=== PATIENT | male | born 1950 | race Caucasian/White ===

== ENCOUNTER 2019-07-04 14:05 | Inpatient (IN) | payer MEDICARE ==
[~2019-07-04] VITALS: Ht 175.3 cm; Wt 85.7 kg
[2019-07-04 14:15] VITALS: BP 166/75
[2019-07-04] MEDS ORDERED: BISACODYL 10 MG SUPP PR PRN (15:00)
[2019-07-04] MEDS ORDERED: GLUCAGON FOR INJ 1 MG VIAL (J1610) SC PRN (15:00)
[2019-07-04] MEDS ORDERED: DEXTROSE 50% 50 ML SYRINGE IV PRN (15:00)
[2019-07-04] MEDS ORDERED: GLUCOSE 4 GM CHEW TABLET PO PRN (15:00)
[2019-07-04] MEDS ORDERED: MOM 30ML SUSPENSION UDC PO PRN (15:00)
[2019-07-04] MEDS ORDERED: ATOR1TAB21 PO (15:13)
[2019-07-04] MEDS ORDERED: METF-877 PO (15:13)
[2019-07-04] MEDS ORDERED: SENN1TAB36 PO (15:13)
[2019-07-04] MEDS ORDERED: WARF-23 PO (15:13)
[2019-07-04] MEDS ORDERED: GABA-1171 PO (15:13)
[2019-07-04] MEDS ORDERED: CARV6.25 PO (15:13)
[2019-07-04] MEDS ORDERED: ENAL10TA2 PO (15:13)
[2019-07-04] MEDS ORDERED: MUCI600T31 PO (15:13)
[2019-07-04] MEDS ORDERED: FURO80TA2 PO (15:18)
[2019-07-04] MEDS ORDERED: ASPI81TA85 PO (15:18)
[2019-07-04] MEDS ORDERED: SPIR-10 PO (15:18)
[2019-07-04] MEDS ORDERED: ACET-897 PO (15:18)
[2019-07-04] MEDS ORDERED: MULTCAP PO (15:19)
[2019-07-04] MEDS ORDERED: WARFARIN SOD 5 MG TAB PO ONE (17:00)
[2019-07-04] MEDS: metFORMIN (GLUCOPHAGE) 1000 MG TABLET PO SCH (18:30)
[2019-07-04] MEDS: ACETAMINOPHEN 500 MG TAB PO SCH ×2 (18:31→21:35)
[2019-07-04] MEDS: HumaLOG INSULIN (NovoLOG) PER UNIT SC SCH ×2 (18:31→20:16)
[2019-07-04 20:00] VITALS: BP 170/78
[2019-07-04] MEDS: GABAPENTIN 100 MG CAP PO SCH (21:35)
[2019-07-04] MEDS: DOCUSATE SODIUM 100 MG CAP PO SCH (21:35)
[2019-07-04] MEDS: SENNA 8.6 MG TAB (SENOKOT) PO SCH (21:35)
[2019-07-04] MEDS: ATORVASTATIN 20 MG TAB PO SCH (21:35)
[2019-07-04] MEDS: BOUDREAUX'S BUTT PASTE TOP SCH (21:36)
[2019-07-04] MEDS: CARVedilol 6.25 MG TAB PO SCH (21:38)
[2019-07-04 21:40] VITALS: BP 130/80
[2019-07-05 05:21] VITALS: BP 140/70
[2019-07-05 05:31] VITALS: BP 140/70
[2019-07-05 07:02] LABS: BASO # 0.1 10^3/uL (0.0-0.2); BASO % 0.8 % (0.0-1.0); EOS # 0.1 10^3/uL (0.0-0.50); EOS % 0.9 % (0.0-3.0); HEMATOCRIT 26.4 % (42.0-52.0); LYMPH % 10.9 % (24.0-44.0); MEAN CORPUSCULAR HEMOGLOBIN 26.7 pg (27.0-33.0); MEAN CORPUSCULAR HGB CONC 30.3 g/dl (32.0-36.5); MONO # 0.6 10^3/uL (0.0-0.8); MONO % 6.4 % (0.0-5.0); NEUTROPHILS % 78.7 % (36.0-66.0); PLATELET COUNT, AUTOMATED 447 10^3/uL (150-450); WHITE BLOOD COUNT 8.9 10^3/uL (4.0-10.0)
[2019-07-05 07:18] LABS: INR 1.68; PROTHROMBIN TIME 19.5 SECONDS (11.8-14.0)
[2019-07-05 07:33] LABS: ALT/SGPT 67 U/L (12-78); BILIRUBIN,TOTAL 0.3 MG/DL (0.2-1.0); BLOOD UREA NITROGEN 19 MG/DL (7-18); CALCIUM LEVEL 8.3 MG/DL (8.8-10.2); CARBON DIOXIDE LEVEL 29 MEQ/L (21-32); CHLORIDE LEVEL 101 MEQ/L (98-107); CREATININE FOR GFR 1.16 MG/DL (0.70-1.30); GLOMERULAR FILTRATION RATE > 60.0 (>42); GLUCOSE, FASTING 123 MG/DL (70-100); POTASSIUM SERUM 3.8 MEQ/L (3.5-5.1); SODIUM LEVEL 137 MEQ/L (136-145); TOTAL PROTEIN 7.5 GM/DL (6.4-8.2)
[2019-07-05] MEDS: CARVedilol 6.25 MG TAB PO SCH ×2 (09:00→20:12)
[2019-07-05] MEDS: DOCUSATE SODIUM 100 MG CAP PO SCH ×2 (09:13→20:10)
[2019-07-05] MEDS: SPIRONOLACTONE 25 MG TAB PO SCH (09:14)
[2019-07-05] MEDS: ONDANSETRON 4 MG ORAL DISINTEGRATING TAB (Q0162 PER 1MG) PO PRN (09:14)
[2019-07-05] MEDS: ASPIRIN 81 MG CHEW TABLET PEG SCH (09:14)
[2019-07-05] MEDS: ACETAMINOPHEN 500 MG TAB PO SCH ×3 (09:14→20:12)
[2019-07-05] MEDS: GABAPENTIN 100 MG CAP PO SCH ×2 (09:14→20:10)
[2019-07-05] MEDS: VITAMIN D 1,000 INTERNATIONAL UNITS TABLET PO SCH (09:14)
[2019-07-05] MEDS: MULTIVITAMINS/MINERALS THERAP 1 TAB PO SCH (09:15)
[2019-07-05] MEDS: FUROSEMIDE 80 MG TAB PO SCH (09:15)
[2019-07-05] MEDS: metFORMIN (GLUCOPHAGE) 1000 MG TABLET PO SCH ×2 (09:20→18:04)
[2019-07-05] MEDS: HumaLOG INSULIN (NovoLOG) PER UNIT SC SCH ×4 (09:21→20:13)
[2019-07-05] MEDS: BOUDREAUX'S BUTT PASTE TOP SCH ×2 (09:22→20:14)
--- NOTE | 2019-07-05 09:54 | HPEPDOC ---
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 Stewart with persistent poor wound healing and leukocytosis admitted to [facility] on June 27 2019 for gangrene of his right toe. he was started on IV vancomycin and zosyn, evaluated by vascular surgery who deemed his foot to be not salvageable. He underwent a right bka on June 30 2019, with post-op complication of having a super therapeutic INR despite having held his Coumadin. His hgb/hct dropped and he was given one unit of red blood cells. He was continued on aspirin and restarted it on coumadin prior to his discharge. He was evaluated by therapy found to be well below his prior level of function with regard to mobility in ADL management and medically appropriate for discharge to ARU on 07-04-2018. REVIEW OF SYSTEMS: The following is a completed review of systems and has been r eviewed. Review of systems otherwise unremarkable. PAIN: Patient self reports no pain EYES: No recent vision changes EARS, NOSE, & THROAT: No throat pain, or dysphagia, or rhinorrhea CARDIOVASCULAR: Denies chest pain or palpitations PULMONARY: Denies shortness of breath GASTROINTESTINAL: Denies constipation/diarrhea GENITOURINARY: no dysuria MUSCULOSKELETAL: right bka NEUROLOGICAL: no vocal Tremor or seizure activity HEMATOLOGICAL: anemia SKIN: bka incision PSYCHIATRIC: Unremarkable All other review of systems found to be negative. PAST MEDICAL HISTORY: as per HPI PAST SURGICAL HISTORY: as per HPI ALLERGIES: Please see below. MEDICATIONS: Please see below. 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 GENERAL: Pleasant and cooperative. No acute distress. HEENT: PERRL. Extraocular movements intact. Clear conjunctiva CARDIOVASCULAR: Regular rate and rhythm. No murmurs, rubs, or gallops LUNGS: Clear to auscultation bilaterally. No wheezes. No rhonchi ABDOMEN: Soft, nontender, nondistended. Positive bowel sounds. Normal active bowel sounds NEUROLOGICAL: Alert and oriented times three. Cranial nerves II through XII grossly intact. Sensation grossly intact EXTREMITIES: 5/\5 strength bilateral upper extremities. 5\5 strength right hip flexion knee flexion knee extension. 5/5 strength in left lower extremity. SKIN: right BKLA incision with scan sanguineous drainage, No induration, minimal swelling LABORATORY DATA: Please see below. IMAGING:Imaging documentation personally reviewed by record FUNCTIONAL STATUS: Premorbid: Independent with all activities of daily life as well as mobility]. On Admission: Requiring assistance for ambulation x 2, minimal assistance or lower-body dressing, requiring assistance for bed mobility and functional transfers GOALS: modified independent household distances with a rolling walker, modified independent functional transfers, toileting dressing bathing, limb care, medical optimization, caregiver training, DME assessment ASSESSMENT:69-year-old M with past medical history of CAD s/p CABG, CKD 3, DM2 who presents status post right BKA PLAN: 1. Rehab: PT- strengthen left LE, maintain ROM right LE, improve endurance for household ambulation, limb desensitization OT- strengthen bilat UE and trunk, teach adaptive equipment use prn, maintain ROM of bilat UE and educate on shoulder stabilization exercises 2. Cardiac: pmh CAD sp CABG with PM/defibrillator, CHF- c/u lasix, aldactone, Co-reg, will fluid restrict to 1800c- medicine consulted to assist in management -Afib- c/u coumadin goal 2-3 3. neuro: pmh CVA with no obvious deficits, c/u statin therapy and ASA for secondary prevention 4. Resp: encourage incentive spirometry 5. Vascular: s/p right BKA -Follow-up appointment with Dr Russo 07-20-19 8 am 6. Renal: pmh CKD, monitor [employer] 7. Endo: pmh DM, c/u metformin and ISS coverage 8. Skin: change dressing BID 9. GI: optimize bowel care 10. : monitor PVRs 11. DVT ppx: on coumadin 12. Pain: c/u Tylenol and oxycodone prn, gabapentin 13. Dispo: tbd POST ADMISSION PHYSICIAN EVALUATION: Medical and functional status: Description of medical status, medical assessment: As above. Rehabilitation diagnosis and current and prior cold morbid medical conditions as above. Risk of complications and plans to mitigate them as above. Description of functional status current status is as above. Prior status as above. Status compared to preadmission: There are no clinically significant differences between the patient's current status and the information described on the preadmission screening document. Treatment plan anticipated: Treatment plan is as described above. Required disciplines including physical therapy, occupational therapy, others as noted above. Intensity of services:3 hours a day, 6 days a week. Special considerations: There are no specific special or safety considerations that would likely preclude immediate implementation of an intensive rehabilitation program or subsequently influence the plan of care. ATTESTATION: Considering all the information above, it is my best judgment that this patient requires intensive rehabilitation therapy as described above and an inpatient hospital environment due to the complexity of nursing, medical, and rehabilitation needs required by the patient. Furthermore, this patient can reasonably be expected to participate in an benefit from an inpatient rehabilitation stay with an interdisciplinary team approach to the delivery of rehabilitation care under the direction and supervision of rehabilitation physician. PROGNOSIS: Excellent ESTIMATED LENGTH OF STAY: 12-14 days. PROJECTED DISCHARGE DESTINATION: Home with family support and any durable medical equipment required to increase functional safety and mobility. TIME SPENT COUNSELING AND COORDINATING INITIAL CARE: Greater than 70 minutes. Vital Signs Vital Sign - Last 24 Hours 07/04/19 07/04/19 07/04/19 07/04/19 14:15 20:00 21:38 21:40 Temp 98.1 96.9 Pulse 69 67 70 70 Resp 18 16 B/P (MAP) 166/75 (105) 170/78 (108) 130/80 130/80 (97) Pulse Ox 98 94 07/05/19 07/05/19 07/05/19 05:21 05:31 09:00 Temp 97.5 Pulse 60 60 Resp 18 B/P (MAP) 140/70 (93) 140/70 (93) 135/61 Pulse Ox 95 Laboratory Data CBC/BMP Laboratory Tests 07/05/19 06:32 Red Blood Count 3.00 L, Mean Corpuscular Volume 88.0, Mean Corpuscular Hemoglobin 26.7 L, Mean Corpuscular Hemoglobin Concent 30.3 L, Red Cell Distribution Width 17.9 H, Neutrophils (%) (Auto) 78.7 H, Lymphocytes (%) (Auto) 10.9 L, Monocytes (%) (Auto) 6.4 H, Eosinophils (%) (Auto) 0.9, Basophils (%) (Auto) 0.8, Neutrophils # (Auto) 7.0, Lymphocytes # (Auto) 1.0 L, Monocytes # (Auto) 0.6, Eosinophils # (Auto) 0.1, Basophils # (Auto) 0.1, Calcium Level 8.3 L, Aspartate Amino Transf (AST/SGOT) 31, Alanine Aminotransferase (ALT/SGPT) 67, Alkaline Phosphatase 167 H, Total Bilirubin 0.3, Total Protein 7.5, Albumin 2.0 L Labs 24H Laboratory Tests 2 07/04/19 17:20: Bedside Glucose (Misc Panel) 137H 07/04/19 20:09: Bedside Glucose (Misc Panel) 168H 07/05/19 06:03: Bedside Glucose (Misc Panel) 135H 07/05/19 06:32: Immature Granulocyte % (Auto) 2.3, White Blood Count 8.9, Red Blood Count 3.00L, Hemoglobin 8.0L, Hematocrit 26.4L, Mean Corpuscular Volume 88.0, Mean Corpuscular Hemoglobin 26.7L, Mean Corpuscular Hemoglobin Concent 30.3L, Red Cell Distribution Width 17.9H, Platelet Count 447, Neutrophils (%) (Auto) 78.7H, Lymphocytes (%) (Auto) 10.9L, Monocytes (%) (Auto) 6.4H, Eosinophils (%) (Auto) 0.9, Basophils (%) (Auto) 0.8, Neutrophils # (Auto) 7.0, Lymphocytes # (Auto) 1.0L, Monocytes # (Auto) 0.6, Eosinophils # (Auto) 0.1, Basophils # (Auto) 0.1, Nucleated Red Blood Cells % (auto) 0.0, Prothrombin Time 19.5H, Prothromb Time I nternational Ratio 1.68, Anion Gap 7L, Glomerular Filtration Rate > 60.0, Blood Urea Nitrogen 19H, Creatinine 1.16, Sodium Level 137, Potassium Level 3.8, Chloride Level 101, Carbon Dioxide Level 29, Calcium Level 8.3L, Aspartate Amino Transf (AST/SGOT) 31, Alanine Aminotransferase (ALT/SGPT) 67, Alkaline Phosphatase 167H, Total Bilirubin 0.3, Total Protein 7.5, Albumin 2.0L, Albumin/Globulin Ratio 0.36L FSBS Laboratory Tests Test 07/04/19 17:20 07/04/19 20:09 07/05/19 06:03 Range/Units Bedside Glucose (Misc Panel) 137 168 135 83-110 MG/DL Home Medications Scheduled Aspirin (Aspir 81) 81 Mg Tablet.dr, 81 MG PO DAILY, (Reported) Atorvastatin Calcium (Atorvastatin Calcium) 20 Mg Tablet, 20 MG PO QHS, (Reported) NEW FROM [facility] Carvedilol (Carvedilol) 6.25 Mg Tablet, 6.25 MG PO BID, (Reported) NEW FROM [facility] Enalapril Maleate (Enalapril Maleate) 10 Mg Tablet, 10 MG PO DAILY, (Reported) HOME MED Furosemide (Furosemide) 80 Mg Tablet, 80 MG PO DAILY, (Reported) Gabapentin (Gabapentin) 100 Mg Capsule, 100 MG PO BID, (Reported) Guaifenesin (Mucinex) 600 Mg Tab.er.12h, 600 MG PO BID, (Reported) Metformin HCl (Metformin HCl) 1,000 Mg Tablet, 1,000 MG PO BID, (Reported) Multivitamin (Multivitamins) 1 Each Capsule, 1 CAP PO DAILY, (Reported) Spironolactone (Spironolactone) 25 Mg Tablet, 25 MG PO DAILY, (Reported) Warfarin Sodium (Warfarin Sodium) 5 Mg Tablet, 5 MG PO QPM, (Reported) Scheduled PRN Acetaminophen (Tylenol Extra Strength) 500 Mg Tablet, 1,000 MG PO TID PRN for PAIN, (Reported) Sennosides/Docusate Sodium (Docusate Sodium-Senna Tablet) 1 Each Tablet, 1 TAB PO BID PRN for CONSTIPATION, (Reported) Allergies Coded Allergies: No Known Drug Allergies (Verified Allergy, Unknown, 07/04/19) A-FIB/CHADSVASC A-FIB History Current/History of A-Fib/PAF?: Yes Current PO Anticoag Therapy: Yes SUJATA NERI MD Jul 05, 2019 09:54
--- NOTE | 2019-07-05 10:28 | IPNPDOC ---
PM&R Progress Note DATE OF SERVICE: Jul 05, 2019 [facility] Progress Note SUbjective: Patient reporting minimal pain in his limb and thinks he had a hard work-out today in therapy. REVIEW OF SYSTEMS: The following is a completed review of systems and has been reviewed. Review of systems otherwise unremarkable. PAIN: Patient self reports no pain EYES: No recent vision changes EARS, NOSE, & THROAT: No throat pain, or dysphagia, or rhinorrhea CARDIOVASCULAR: Denies chest pain or palpitations PULMONARY: Denies shortness of breath GASTROINTESTINAL: Denies constipation/diarrhea GENITOURINARY: no dysuria MUSCULOSKELETAL: right bka NEUROLOGICAL: no vocal Tremor or seizure activity HEMATOLOGICAL: anemia SKIN: bka incision PSYCHIATRIC: Unremarkable All other review of systems found to be negative. PHYSICAL EXAMINATION: VITAL SIGNS: Please see below. GENERAL: Pleasant and cooperative. No acute distress. HEENT: PERRL. Extraocular movements intact. Clear conjunctiva CARDIOVASCULAR: Regular rate and rhythm. No murmurs, rubs, or gallops LUNGS: Clear to auscultation bilaterally. No wheezes. No rhonchi ABDOMEN: Soft, nontender, nondistended. Positive bowel sounds. Normal active bowel sounds NEUROLOGICAL: Alert and oriented times three. Cranial nerves II through XII grossly intact. Sensation grossly intact EXTREMITIES: 5/\5 strength bilateral upper extremities. 5\5 strength right hip flexion knee flexion knee extension. 5/5 strength in left lower extremity. SKIN: right BKLA incision with scan sanguineous drainage, No induration, minimal swelling ASSESSMENT:69-year-old M with past medical history of CAD s/p CABG, CKD 3, DM2 who presents status post right BKA PLAN: 1. Rehab: PT- strengthen left LE, maintain ROM right LE, improve endurance for household ambulation, limb desensitization OT- strengthen bilat UE and trunk, teach adaptive equipment use prn, maintain ROM of bilat UE and educate on shoulder stabilization exercises 2. Cardiac: pmh CAD sp CABG with PM/defibrillator, CHF- c/u lasix, aldactone, Co-reg, will fluid restrict to 1800c- medicine consulted to assist in management -Afib- c/u coumadin goal 2-3 3. neuro: pmh CVA with no obvious deficits, c/u statin therapy and ASA for secondary prevention 4. Resp: encourage incentive spirometry 5. Vascular: s/p right BKA -Follow-up appointment with Dr Stewart 07-20-19 8 am 6. Renal: pmh CKD, monitor [employer] 7. Endo: pmh DM, c/u metformin and ISS coverage 8. Skin: change dressing BID 9. GI: optimize bowel care 10. : monitor PVRs 11. DVT ppx: on coumadin 12. Pain: c/u Tylenol and oxycodone prn, gabapentin 13. Dispo: tbd Allergies Coded Allergies: No Known Drug Allergies (Verified Allergy, Unknown, 07/04/19) Vital Signs Vital Signs Date Time Temp Pulse Resp B/P (MAP) Pulse Ox O2 Delivery O2 Flow Rate FiO2 07/05/19 09:00 60 135/61 07/05/19 05:31 97.5 18 95 Laboratory Data CBC/BMP Laboratory Tests 07/05/19 06:32 Red Blood Count 3.00 L, Mean Corpuscular Volume 88.0, Mean Corpuscular Hemoglobin 26.7 L, Mean Corpuscular Hemoglobin Concent 30.3 L, Red Cell Distribution Width 17.9 H, Neutrophils (%) (Auto) 78.7 H, Lymphocytes (%) (Auto) 10.9 L, Monocytes (%) (Auto) 6.4 H, Eosinophils (%) (Auto) 0.9, Basophils (%) (Auto) 0.8, Neutrophils # (Auto) 7.0, Lymphocytes # (Auto) 1.0 L, Monocytes # (Auto) 0.6, Eosinophils # (Auto) 0.1, Basophils # (Auto) 0.1, Calcium Level 8.3 L, Aspartate Amino Transf (AST/SGOT) 31, Alanine Aminotransferase (ALT/SGPT) 67, Alkaline Phosphatase 167 H, Total Bilirubin 0.3, Total Protein 7.5, Albumin 2.0 L Labs 24H Laboratory Tests 2 07/04/19 17:20: Bedside Glucose (Misc Panel) 137H 07/04/19 20:09: Bedside Glucose (Misc Panel) 168H 07/05/19 06:03: Bedside Glucose (Misc Panel) 135H 07/05/19 06:32: Immature Granulocyte % (Auto) 2.3, White Blood Count 8.9, Red Blood Count 3.00L, Hemoglobin 8.0L, Hematocrit 26.4L, Mean Corpuscular Volume 88.0, Mean Corpuscular Hemoglobin 26.7L, Mean Corpuscular Hemoglobin Concent 30.3L, Red Cell Distribution Width 17.9H, Platelet Count 447, Neutrophils (%) (Auto) 78.7H, Lymphocytes (%) (Auto) 10.9L, Monocytes (%) (Auto) 6.4H, Eosinophils (%) (Auto) 0.9, Basophils (%) (Auto) 0.8, Neutrophils # (Auto) 7.0, Lymphocytes # (Auto) 1.0L, Monocytes # (Auto) 0.6, Eosinophils # (Auto) 0.1, Basophils # (Auto) 0.1, Nucleated Red Blood Cells % (auto) 0.0, Prothrombin Time 19.5H, Prothromb Time International Ratio 1.68, Anion Gap 7L, Glomerular Filtration Rate > 60.0, Blood Urea Nitrogen 19H, Creatinine 1.16, Sodium Level 137, Potassium Level 3.8, Chloride Level 101, Carbon Dioxide Level 29, Calcium Level 8.3L, Aspartate Amino Transf (AST/SGOT) 31, Alanine Aminotransferase (ALT/SGPT) 67, Alkaline Phosphatase 167H, Total Bilirubin 0.3, Total Protein 7.5, Albumin 2.0L, Albumin/Globulin Ratio 0.36L Current Medications Current Medications Current Medications Medications (Trade) Dose Ordered Sig/Lico Route PRN Reason Start Time Stop Time Status Last Admin Dose Admin Acetaminophen (Tylenol Tab) 1,000 mg TID PO 07/04/19 16:00 07/05/19 09:14 Aspirin (Aspirin Chewable) 81 mg DAILY PEG 07/05/19 09:00 07/05/19 09:14 Atorvastatin Calcium (Lipitor) 20 mg QHS PO 07/04/19 21:00 07/04/19 21:35 Bisacodyl (Dulcolax Suppository) 10 mg DAILYPRN PRN GA CONSTIPATION 07/04/19 15:00 Carvedilol (COReg) 6.25 mg BID PO 07/04/19 21:00 07/04/19 21:38 Dextrose (Dextrose 50%) 25 ml ASDIRECTED PRN IV SEE LABEL COMMENTS 07/04/19 15:00 Docusate Sodium (Colace) 100 mg BID PO 07/04/19 21:00 07/05/19 09:13 Furosemide (Lasix) 80 mg DAILY PO 07/05/19 09:00 07/05/19 09:15 Gabapentin (Neurontin) 100 mg BID PO 07/04/19 21:00 07/05/19 09:14 Glucagon (Glucagon) 1 mg ASDIRECTED PRN SC SEE LABEL COMMENTS 07/04/19 15:00 Glucose (Glucose) 16 GM ASDIRECTED PRN PO SEE LABEL COMMENTS 07/04/19 15:00 Home Med (Med Rec Complete!) ASDIRECTED XX 07/04/19 15:30 07/04/19 15:32 DC Insulin Human Lispro (HumaLOG INSULIN) SEE PROTOCOL TABLE AC SC 07/04/19 17:30 07/05/19 09:21 Insulin Human Lispro (HumaLOG INSULIN) SEE PROTOCOL TABLE QHS SC 07/04/19 21:00 Magnesium Hydroxide (Milk Of Magnesia) 30 ml DAILYPRN PRN PO CONSTIPATION 07/04/19 15:00 Metformin HCl (Glucophage) 1,000 mg BID@08,18 PO 07/04/19 18:00 07/05/19 09:20 Multivitamins (Theragram-M) 1 tab DAILY PO 07/05/19 09:00 07/05/19 09:15 Ondansetron HCl (Zofran Odt) 4 mg Q8HP PRN PO NAUSEA OR VOMITING 07/05/19 08:45 07/05/19 09:14 Oxycodone HCl (Roxicodone, Oxyir) 5 mg Q4HP PRN PO PAIN 07/04/19 15:00 Senna (Senokot) 1 tab QHS PO 07/04/19 21:00 07/04/19 21:35 Spironolactone (Aldactone) 25 mg QAM PO 07/05/19 09:00 07/05/19 09:14 Vitamin D (Vitamin D) 1,000 units DAILY PO 07/05/19 09:00 07/05/19 09:14 Zinc Oxide (Boudreauxs Butt Paste) sacrum BID TOP 07/04/19 21:00 07/05/19 09:22 SUJATA NERI MD Jul 05, 2019 10:28
--- NOTE | 2019-07-05 11:16 | CR.PDOC ---
General Date of Consultation: Jul 05, 2019 Referring Provider: SUJATA NERI MD Attending Physician: ISABELL ROGERS MD Consultation REASON FOR CONSULTATION/CHIEF COMPLAINT: Medical management HISTORY OF PRESENT ILLNESS: Patient is a 69-year-old male, past medical history significant for peripheral vascular disease, who sustained injury to his right total from an ingrown toenail. Patient subsequently developed gangrene requiring evaluation by vascular surgery with the decision to proceed with right femoral tibial bypass on May 19. After surgery and return home, he did not heal and actually developed infection and became septic. He was admitted to ICU and after reevaluation, the decision was made to proceed with [id number] amputation of his right foot due to nonhealing ulcer and infection. Post surgery, patient was discharged to inpatient rehabilitation unit for mobilization and strengthening. On assessment today he denies chest pain, shortness of breath, weakness, nausea, abdominal pain, constipation, diarrhea. ALLERGIES: Please see below. HOME MEDICATIONS: Please see below. PAST MEDICAL HISTORY: 1. CAD S/P CABG 2. Type 2 diabetes mellitus 3. Hypertension 4. Hyperlipidemia 5. Chronic kidney disease 6. Peripheral arterial disease 7. Ischemic cardiomyopathy 8. CVA. 9. Chronic systolic, diastolic heart failure 10. Mitral valve regurgitation PAST SURGICAL HISTORY: 1. Right BKA. 2. ICD permanent pacemaker implantation. 3. CABG 4. Coronary angioplasty. 5. Peripheral angioplasty. 6. Hernia repair. 7. Cholecystectomy. 8. Right femoral tibial bypass FAMILY HISTORY: Father: Diabetes mellitus, hypertension Mother: Diabetes mellitus, hypertension SOCIAL HISTORY: Tobacco use: Denies ETOH: Denies Illicit drug use: Denies IV drug use: Denies REVIEW OF SYSTEMS:A pertinent 10 point review of systems is completed, negative except as stated in the history of presenting illness PHYSICAL EXAMINATION: GENERAL: NAD SKIN : Warm, dry, right BKA wound, ischemic changes to left lower extremity HEENT: Atraumatic, normocephalic, PERRL, moist mucous membrane CARDIOVASCULAR: Regular rate and rhythm, S1S2, no JVD, left LE edema, distal pulses not palpable RESP: CTAB, no accessory muscle use noted ABDOMEN: BS+ non distended non tender MS:right BKA NEURO: Alert and oriented x 3, CN2-12 grossly intact PSYCH: no anxiety or agitation, appropriate mood and affect. LABORATORY DATA: Please see below. ASSESSMENT/PLAN: 1. Hypertension -Stable, controlled, and she monitoring per unit protocol 2. CAD without angina -CAD risk factor modifications 3. Chronic atrial fibrillation -With possibly complete heart block in the past, now pacemaker dependent. Patient -Rate is controlled -Continue warfarin for target INR 2-3 4. Type 2 diabetes mellitus -Fingerstick monitoring prior to meals and at bedtime -Metformin 1000 mg twice a day 5. Combined heart failure -Chronic, currently euvolemic -Fluid restriction, 1800 mL a day -Strict input and output monitoring -Continue Lasix with electrolytes monitoring 6. DVT prophylaxis -Fully anticoagulated with warfarin Vital Signs/I&O Vital Signs Date Time Temp Pulse Resp B/P (MAP) Pulse Ox O2 Delivery O2 Flow Rate FiO2 07/05/19 09:00 60 135/61 07/05/19 05:31 97.5 18 95 I&O- Last 24 Hours up to 6 AM 07/05/19 06:00 Intake Total 960 ml Output Total 1850 ml Balance -890 ml Laboratory Data Labs 24H Laboratory Tests 2 07/04/19 17:20: Bedside Glucose (Misc Panel) 137H 07/04/19 20:09: Bedside Glucose (Misc Panel) 168H 07/05/19 06:03: Bedside Glucose (Misc Panel) 135H 07/05/19 06:32: Immature Granulocyte % (Auto) 2.3, White Blood Count 8.9, Red Blood Count 3.00L, Hemoglobin 8.0L, Hematocrit 26.4L, Mean Corpuscular Volume 88.0, Mean Corpuscular Hemoglobin 26.7L, Mean Corpuscular Hemoglobin Concent 30.3L, Red C ell Distribution Width 17.9H, Platelet Count 447, Neutrophils (%) (Auto) 78.7H, Lymphocytes (%) (Auto) 10.9L, Monocytes (%) (Auto) 6.4H, Eosinophils (%) (Auto) 0.9, Basophils (%) (Auto) 0.8, Neutrophils # (Auto) 7.0, Lymphocytes # (Auto) 1.0L, Monocytes # (Auto) 0.6, Eosinophils # (Auto) 0.1, Basophils # (Auto) 0.1, Nucleated Red Blood Cells % (auto) 0.0, Prothrombin Time 19.5H, Prothromb Time International Ratio 1.68, Anion Gap 7L, Glomerular Filtration Rate > 60.0, Blood Urea Nitrogen 19H, Creatinine 1.16, Sodium Level 137, Potassium Level 3.8, Chloride Level 101, Carbon Dioxide Level 29, Calcium Level 8.3L, Aspartate Amino Transf (AST/SGOT) 31, Alanine Aminotransferase (ALT/SGPT) 67, Alkaline Phosphatase 167H, Total Bilirubin 0.3, Total Protein 7.5, Albumin 2.0L, Albumin/Globulin Ratio 0.36L CBC/BMP Laboratory Tests 07/05/19 06:32 Red Blood Count 3.00 L, Mean Corpuscular Volume 88.0, Mean Corpuscular Hemoglobin 26.7 L, Mean Corpuscular Hemoglobin Concent 30.3 L, Red Cell Distribution Width 17.9 H, Neutrophils (%) (Auto) 78.7 H, Lymphocytes (%) (Auto) 10.9 L, Monocytes (%) (Auto) 6.4 H, Eosinophils (%) (Auto) 0.9, Basophils (%) (Auto) 0.8, Neutrophils # (Auto) 7.0, Lymphocytes # (Auto) 1.0 L, Monocytes # (Auto) 0.6, Eosinophils # (Auto) 0.1, Basophils # (Auto) 0.1, Calcium Level 8.3 L, Aspartate Amino Transf (AST/SGOT) 31, Alanine Aminotransferase (ALT/SGPT) 67, Alkaline Phosphatase 167 H, Total Bilirubin 0.3, Total Protein 7.5, Albumin 2.0 L Allergies Coded Allergies: No Known Drug Allergies (Verified Allergy, Unknown, 07/04/19) Home Medications Scheduled Aspirin (Aspir 81) 81 Mg Tablet.dr, 81 MG PO DAILY, (Reported) Atorvastatin Calcium (Atorvastatin Calcium) 20 Mg Tablet, 20 MG PO QHS, (Reported) NEW FROM [facility] Carvedilol (Carvedilol) 6.25 Mg Tablet, 6.25 MG PO BID, (Reported) NEW FROM [facility] Enalapril Maleate (Enalapril Maleate) 10 Mg Tablet, 10 MG PO DAILY, (Reported) HOME MED Furosemide (Furosemide) 80 Mg Tablet, 80 MG PO DAILY, (Reported) Gabapentin (Gabapentin) 100 Mg Capsule, 100 MG PO BID, (Reported) Guaifenesin (Mucinex) 600 Mg Tab.er.12h, 600 MG PO BID, (Reported) Metformin HCl (Metformin HCl) 1,000 Mg Tablet, 1,000 MG PO BID, (Reported) Multivitamin (Multivitamins) 1 Each Capsule, 1 CAP PO DAILY, (Reported) Spironolactone (Spironolactone) 25 Mg Tablet, 25 MG PO DAILY, (Reported) Warfarin Sodium (Warfarin Sodium) 5 Mg Tablet, 5 MG PO QPM, (Reported) Scheduled PRN Acetaminophen (Tylenol Extra Strength) 500 Mg Tablet, 1,000 MG PO TID PRN for PAIN, (Reported) Sennosides/Docusate Sodium (Docusate Sodium-Senna Tablet) 1 Each Tablet, 1 TAB PO BID PRN for CONSTIPATION, (Reported) KATHRYN ALDRIDGE [facility] Jul 05, 2019 11:16
[2019-07-05] MEDS ORDERED: WARFARIN SOD 2 MG TAB PO ONE (17:00)
[2019-07-05] MEDS ORDERED: WARFARIN SOD 5 MG TAB PO ONE (17:00)
[2019-07-05 20:00] VITALS: BP 153/72
[2019-07-05] MEDS: SENNA 8.6 MG TAB (SENOKOT) PO SCH (20:10)
[2019-07-05] MEDS: ATORVASTATIN 20 MG TAB PO SCH (20:11)
[2019-07-06 04:31] VITALS: BP 164/79
[2019-07-06 06:48] LABS: INR 1.52
[2019-07-06] MEDS: ACETAMINOPHEN 500 MG TAB PO SCH (08:49)
[2019-07-06] MEDS: metFORMIN (GLUCOPHAGE) 1000 MG TABLET PO SCH ×2 (08:49→17:38)
[2019-07-06] MEDS: CARVedilol 6.25 MG TAB PO SCH ×2 (08:49→21:34)
[2019-07-06] MEDS: GABAPENTIN 100 MG CAP PO SCH ×2 (08:49→21:34)
[2019-07-06] MEDS: SPIRONOLACTONE 25 MG TAB PO SCH (08:50)
[2019-07-06] MEDS: DOCUSATE SODIUM 100 MG CAP PO SCH ×2 (08:50→21:33)
[2019-07-06] MEDS: ASPIRIN 81 MG CHEW TABLET PEG SCH (08:50)
[2019-07-06] MEDS: MULTIVITAMINS/MINERALS THERAP 1 TAB PO SCH (08:50)
[2019-07-06] MEDS: FUROSEMIDE 80 MG TAB PO SCH (08:50)
[2019-07-06] MEDS: HumaLOG INSULIN (NovoLOG) PER UNIT SC SCH ×4 (08:50→20:01)
[2019-07-06] MEDS: VITAMIN D 1,000 INTERNATIONAL UNITS TABLET PO SCH (08:50)
[2019-07-06] MEDS: BOUDREAUX'S BUTT PASTE TOP SCH ×2 (08:51→21:35)
[2019-07-06] MEDS: oxyCODONE 5MG TAB PO PRN (10:58)
--- NOTE | 2019-07-06 11:36 | IPNPDOC ---
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 REVIEW OF SYSTEMS: The following is a completed review of systems and has been reviewed. Review of systems otherwise unremarkable. PAIN: Patient self reports no pain EYES: No recent vision changes EARS, NOSE, & THROAT: No throat pain, or dysphagia, or rhinorrhea CARDIOVASCULAR: Denies chest pain or palpitations PULMONARY: Denies shortness of breath GASTROINTESTINAL: Denies constipation/diarrhea GENITOURINARY: no dysuria MUSCULOSKELETAL: right bka NEUROLOGICAL: no vocal Tremor or seizure activity HEMATOLOGICAL: anemia SKIN: bka incision PSYCHIATRIC: Unremarkable All other review of systems found to be negative. PHYSICAL EXAMINATION: VITAL SIGNS: Please see below. GENERAL: Pleasant and cooperative. No acute distress. HEENT: PERRL. Extraocular movements intact. Clear conjunctiva CARDIOVASCULAR: Regular rate and rhythm. No murmurs, rubs, or gallops LUNGS: Clear to auscultation bilaterally. No wheezes. No rhonchi ABDOMEN: Soft, nontender, nondistended. Positive bowel sounds. Normal active b owel sounds NEUROLOGICAL: Alert and oriented times three. Cranial nerves II through XII grossly intact. Sensation grossly intact EXTREMITIES: 5/\5 strength bilateral upper extremities. 5\5 strength right hip flexion knee flexion knee extension. 5/5 strength in left lower extremity. SKIN: right BKLA incision with scan sanguineous drainage, No induration, minimal swelling ASSESSMENT:69-year-old M with past medical history of CAD s/p CABG, CKD 3, DM2 who presents status post right BKA PLAN: 1. Rehab: PT- strengthen left LE, maintain ROM right LE, improve endurance for household ambulation, limb desensitization OT- strengthen bilat UE and trunk, teach adaptive equipment use prn, maintain ROM of bilat UE and educate on shoulder stabilization exercises 2. Cardiac: pmh CAD sp CABG with PM/defibrillator, CHF- c/u lasix, aldactone, Co-reg, fluid restrict to 1800c- medicine consulted to assist in management -Afib- c/u coumadin goal 2-3, INR 1.5 today will start full dose Lovenox while bridging to Coumadin 3. neuro: pmh CVA with no obvious deficits, c/u statin therapy and ASA for secondary prevention 4. Resp: encourage incentive spirometry 5. Vascular: s/p right BKA -Follow-up appointment with Dr Stewart 07-20-19 8 am 6. 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 Endo: pmh DM, c/u metformin and ISS coverage 8. Skin: change dressing BID 9. GI: optimize bowel care 10. : monitor PVRs 11. DVT ppx: on coumadin 12. Pain: c/u Tylenol and oxycodone prn, gabapentin 13. Dispo: tbd Allergies Coded Allergies: No Known Drug Allergies (Verified Allergy, Unknown, 07/04/19) Vital Signs Vital Signs Date Time Temp Pulse Resp B/P (MAP) Pulse Ox O2 Delivery O2 Flow Rate FiO2 07/06/19 10:58 18 07/06/19 08:49 62 164/79 07/06/19 04:31 97.7 93 Laboratory Data Labs 24H Laboratory Tests 2 07/05/19 11:51: Bedside Glucose (Misc Panel) 98 07/05/19 17:19: Bedside Glucose (Misc Panel) 144H 07/05/19 19:53: Bedside Glucose (Misc Panel) 156H 07/06/19 05:47: Bedside Glucose (Misc Panel) 122H 07/06/19 06:08: Prothrombin Time 18.0H, Prothromb Time International Ratio 1.52 Current Medications Current Medications Current Medications Medications (Trade) Dose Ordered Sig/Lico Route PRN Reason Start Time Stop Time Status Last Admin Dose Admin Acetaminophen (Tylenol Tab) 1,000 mg TID PO 07/04/19 16:00 07/06/19 08:49 Aspirin (Aspirin Chewable) 81 mg DAILY PEG 07/05/19 09:00 07/06/19 08:50 Atorvastatin Calcium (Lipitor) 20 mg QHS PO 07/04/19 21:00 07/05/19 20:11 Bisacodyl (Dulcolax Suppository) 10 mg DAILYPRN PRN DC CONSTIPATION 07/04/19 15:00 Carvedilol (COReg) 6.25 mg BID PO 07/04/19 21:00 07/06/19 08:49 Dextrose (Dextrose 50%) 25 ml ASDIRECTED PRN IV SEE LABEL COMMENTS 07/04/19 15:00 Docusate Sodium (Colace) 100 mg BID PO 07/04/19 21:00 07/06/19 08:50 Furosemide (Lasix) 80 mg DAILY PO 07/05/19 09:00 07/06/19 08:50 Gabapentin (Neurontin) 100 mg BID PO 07/04/19 21:00 07/06/19 08:49 Glucagon (Glucagon) 1 mg ASDIRECTED PRN SC SEE LABEL COMMENTS 07/04/19 15:00 Glucose (Glucose) 16 GM ASDIRECTED PRN PO SEE LABEL COMMENTS 07/04/19 15:00 Home Med (Med Rec Complete!) ASDIRECTED XX 07/04/19 15:30 07/04/19 15:32 DC Insulin Human Lispro (HumaLOG INSULIN) SEE PROTOCOL TABLE AC SC 07/04/19 17:30 07/06/19 08:50 Insulin Human Lispro (HumaLOG INSULIN) SEE PROTOCOL TABLE QHS SC 07/04/19 21:00 Magnesium Hydroxide (Milk Of Magnesia) 30 ml DAILYPRN PRN PO CONSTIPATION 07/04/19 15:00 Metformin HCl (Glucophage) 1,000 mg BID@08,18 PO 07/04/19 18:00 07/06/19 08:49 Multivitamins (Theragram-M) 1 tab DAILY PO 07/05/19 09:00 07/06/19 08:50 Ondansetron HCl (Zofran Odt) 4 mg Q8HP PRN PO NAUSEA OR VOMITING 07/05/19 08:45 07/05/19 09:14 Oxycodone HCl (Roxicodone, Oxyir) 5 mg Q4HP PRN PO PAIN 07/04/19 15:00 07/06/19 10:58 Senna (Senokot) 1 tab QHS PO 07/04/19 21:00 07/05/19 20:10 Spironolactone (Aldactone) 25 mg QAM PO 07/05/19 09:00 07/06/19 08:50 Vitamin D (Vitamin D) 1,000 units DAILY PO 07/05/19 09:00 07/06/19 08:50 Zinc Oxide (Boudreauxs Butt Paste) sacrum BID TOP 07/04/19 21:00 07/06/19 08:51 SUJATA NERI MD Jul 06, 2019 11:36
[2019-07-06] MEDS: ENOXAPARIN 100MG/1ML SYRINGE (J1650) SC SCH ×2 (12:18→21:34)
--- NOTE | 2019-07-06 12:41 | IPNPDOC ---
Text Note Date of Service The patient was seen on 07/06/19. NOTE SUBJECTIVE: Verbalizes no current complaints of concerns. Denies chest pain, denies shortness of breath. Reports soreness to right BKA which is tolerable. OBJECTIVE GENERAL: NAD SKIN : Warm, dry, right BKA wound, ischemic changes to left lower extremity HEENT: Atraumatic, normocephalic, PERRL, moist mucous membrane CARDIOVASCULAR: Regular rate and rhythm, S1S2, no JVD, left LE edema, distal pulses not palpable RESP: CTAB, no accessory muscle use noted ABDOMEN: BS+ non distended non tender MS:right BKA NEURO: Alert and oriented x 3, CN2-12 grossly intact PSYCH: no anxiety or agitation, appropriate mood and affect. LABORATORY DATA: Please see below. ASSESSMENT/PLAN: 1. Hypertension -Stable, controlled -Continue current medications,and monitoring per unit protocol 2. CAD without angina -CAD risk factor modifications 3. Chronic atrial fibrillation -now pacemaker dependent. -Rate is controlled -INR 1.5 today with increased -Continue warfarin for target INR 2-3 4. Type 2 diabetes mellitus -Fingerstick monitoring prior to meals and at bedtime -Metformin 1000 mg twice a day 5. Combined heart failure -Chronic, currently euvolemic -Fluid restriction, 1800 mL a day -Strict input and output monitoring -Continue Lasix with electrolytes monitoring 6. DVT prophylaxis -Fully anticoagulated with warfarin VS,Fishbone, I+O VS, Fishbone, I+O Vital Signs Date Time Temp Pulse Resp B/P (MAP) Pulse Ox O2 Delivery O2 Flow Rate FiO2 07/06/19 11:28 18 07/06/19 08:49 62 164/79 07/06/19 04:31 97.7 93 I&O- Last 24 Hours up to 6 AM 07/06/19 05:59 Intake Total 610 ml Output Total 1450 ml Balance -840 ml KATHRYN ALDRIDGEP Jul 06, 2019 12:41
[2019-07-06 14:00] VITALS: BP 149/72
[2019-07-06] MEDS ORDERED: WARFARIN SOD 5 MG TAB PO SCH (17:00)
[2019-07-06] MEDS ORDERED: WARFARIN SOD 2 MG TAB PO SCH (17:00)
[2019-07-06 20:00] VITALS: BP 116/57
[2019-07-06] MEDS: ATORVASTATIN 20 MG TAB PO SCH (21:33)
[2019-07-06] MEDS: SENNA 8.6 MG TAB (SENOKOT) PO SCH (21:34)
[2019-07-07 06:00] VITALS: BP 132/70
[2019-07-07 06:31] VITALS: BP 132/70
[2019-07-07 06:36] LABS: BASO # 0.1 10^3/uL (0.0-0.2); BASO % 1.3 % (0.0-1.0); EOS # 0.1 10^3/uL (0.0-0.50); EOS % 0.8 % (0.0-3.0); HEMATOCRIT 30.6 % (42.0-52.0); HEMOGLOBIN 9.4 g/dl (13.5-17.5); LYMPH # 1.1 10^3/uL (1.5-4.5); LYMPH % 14.7 % (24.0-44.0); MEAN CORPUSCULAR HEMOGLOBIN 27.6 pg (27.0-33.0); MEAN CORPUSCULAR HGB CONC 30.7 g/dl (32.0-36.5); MONO # 0.5 10^3/uL (0.0-0.8); MONO % 7.1 % (0.0-5.0); NEUTROPHILS # 5.6 10^3/uL (1.8-7.7); NEUTROPHILS % 74.8 % (36.0-66.0); PLATELET COUNT, AUTOMATED 493 10^3/uL (150-450); WHITE BLOOD COUNT 7.5 10^3/uL (4.0-10.0)
[2019-07-07 06:52] LABS: INR 1.57; PROTHROMBIN TIME 18.5 SECONDS (11.8-14.0)
[2019-07-07] MEDS: oxyCODONE 5MG TAB PO PRN (06:55)
[2019-07-07 06:56] LABS: BLOOD UREA NITROGEN 17 MG/DL (7-18); CALCIUM LEVEL 8.4 MG/DL (8.8-10.2); CARBON DIOXIDE LEVEL 32 MEQ/L (21-32); CHLORIDE LEVEL 100 MEQ/L (98-107); CREATININE FOR GFR 1.16 MG/DL (0.70-1.30); GLOMERULAR FILTRATION RATE > 60.0 (>42); GLUCOSE, FASTING 115 MG/DL (70-100); SODIUM LEVEL 138 MEQ/L (136-145)
[2019-07-07] MEDS: SPIRONOLACTONE 25 MG TAB PO SCH (07:39)
[2019-07-07] MEDS: ASPIRIN 81 MG CHEW TABLET PEG SCH (07:39)
[2019-07-07] MEDS: VITAMIN D 1,000 INTERNATIONAL UNITS TABLET PO SCH (07:39)
[2019-07-07] MEDS: metFORMIN (GLUCOPHAGE) 1000 MG TABLET PO SCH ×2 (07:39→17:26)
[2019-07-07] MEDS: CARVedilol 6.25 MG TAB PO SCH ×2 (07:39→21:00)
[2019-07-07] MEDS: ENOXAPARIN 100MG/1ML SYRINGE (J1650) SC SCH ×2 (07:39→22:37)
[2019-07-07] MEDS: FUROSEMIDE 80 MG TAB PO SCH (07:40)
[2019-07-07] MEDS: DOCUSATE SODIUM 100 MG CAP PO SCH ×2 (07:40→22:36)
[2019-07-07] MEDS: GABAPENTIN 100 MG CAP PO SCH ×2 (07:40→22:37)
[2019-07-07] MEDS: MULTIVITAMINS/MINERALS THERAP 1 TAB PO SCH (07:40)
[2019-07-07] MEDS: HumaLOG INSULIN (NovoLOG) PER UNIT SC SCH ×4 (07:41→21:00)
[2019-07-07] MEDS: BOUDREAUX'S BUTT PASTE TOP SCH ×2 (07:42→21:00)
--- NOTE | 2019-07-07 09:48 | IPNPDOC ---
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 REVIEW OF SYSTEMS: The following is a completed review of systems and has been reviewed. Review of systems otherwise unremarkable. PAIN: Patient self reports no pain EYES: No recent vision changes EARS, NOSE, & THROAT: No throat pain, or dysphagia, or rhinorrhea CARDIOVASCULAR: Denies chest pain or palpitations PULMONARY: Denies shortness of breath GASTROINTESTINAL: Denies constipation/diarrhea GENITOURINARY: no dysuria MUSCULOSKELETAL: right bka NEUROLOGICAL: no vocal Tremor or seizure activity HEMATOLOGICAL: anemia SKIN: bka incision PSYCHIATRIC: Unremarkable All other review of systems found to be negative. PHYSICAL EXAMINATION: VITAL SIGNS: Please see below. GENERAL: Pleasant and cooperative. No acute distress. HEENT: PERRL. Extraocular movements intact. Clear conjunctiva CARDIOVASCULAR: Regular rate and rhythm. No murmurs, rubs, or gallops LUNGS: Clear to auscultation bilaterally. No wheezes. No rhonchi ABDOMEN: Soft, nontender, nondistended. Positive bowel sounds. Normal active bowel sounds NEUROLOGICAL: Alert and oriented times three. Cranial nerves II through XII grossly intact. Sensation grossly intact EXTREMITIES: 5/\5 strength bilateral upper extremities. 5\5 strength right hip flexion knee flexion knee extension. 5/5 strength in left lower extremity. (-) Neers and Rodriguez maneuver bilat SKIN: right BKLA incision c/d/i, No induration ASSESSMENT:69-year-old M with past medical history of CAD s/p CABG, CKD 3, DM2 who presents status post right BKA PLAN: 1. Rehab: PT- strengthen left LE, maintain ROM right LE, improve endurance for household ambulation, limb desensitization- able to ambulate 60 feet today with RW OT- strengthen bilat UE and trunk, teach adaptive equipment use prn, maintain ROM of bilat UE and educate on shoulder stabilization exercises 2. Cardiac: pmh CAD sp CABG with PM/defibrillator, CHF- c/u lasix, aldactone, Co-reg, fluid restrict to 1800c- medicine consulted to assist in management -Afib- c/u coumadin goal 2-3, INR 1.57 today c/u full dose Lovenox while bridging to Coumadin 3. neuro: pmh CVA with no obvious deficits, c/u statin therapy and ASA for secondary prevention 4. Resp: encourage incentive spirometry 5. Vascular: s/p right BKA -Follow-up appointment with Dr Stewart 07-20-19 8 am 6. 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 Endo: pmh DM, c/u metformin and ISS coverage 8. Skin: change dressing BID 9. GI: optimize bowel care 10. : monitor PVRs 11. DVT ppx: on coumadin, being bridged from Lovenox 12. Pain: c/u Tylenol prn and gabapentin 13. Dispo: tbd Allergies Coded Allergies: No Known Drug Allergies (Verified Allergy, Unknown, 07/04/19) Vital Signs Vital Signs Date Time Temp Pulse Resp B/P (MAP) Pulse Ox O2 Delivery O2 Flow Rate FiO2 07/07/19 07:39 63 132/70 07/07/19 07:25 16 07/07/19 06:00 97.3 93 Laboratory Data CBC/BMP Laboratory Tests 07/07/19 06:14 Red Blood Count 3.40 L, Mean Corpuscular Volume 90.0, Mean Corpuscular Hemoglobin 27.6, Mean Corpuscular Hemoglobin Concent 30.7 L, Red Cell Distributi on Width 18.3 H, Neutrophils (%) (Auto) 74.8 H, Lymphocytes (%) (Auto) 14.7 L, Monocytes (%) (Auto) 7.1 H, Eosinophils (%) (Auto) 0.8, Basophils (%) (Auto) 1.3 H, Neutrophils # (Auto) 5.6, Lymphocytes # (Auto) 1.1 L, Monocytes # (Auto) 0.5, Eosinophils # (Auto) 0.1, Basophils # (Auto) 0.1, Calcium Level 8.4 L Labs 24H Laboratory Tests 2 07/06/19 11:59: Bedside Glucose (Misc Panel) 106 07/06/19 16:48: Bedside Glucose (Misc Panel) 101 07/06/19 19:55: Bedside Glucose (Misc Panel) 105 07/07/19 06:14: Immature Granulocyte % (Auto) 1.3, White Blood Count 7.5, Red Blood Count 3.40L, Hemoglobin 9.4L, Hematocrit 30.6L, Mean Corpuscular Volume 90.0, Mean Corpuscular Hemoglobin 27.6, Mean Corpuscular Hemoglobin Concent 30.7L, Red Cell Distribution Width 18.3H, Platelet Count 493H, Neutrophils (%) (Auto) 74.8H, Lymphocytes (%) (Auto) 14.7L, Monocytes (%) (Auto) 7.1H, Eosinophils (%) (Auto) 0.8, Basophils (%) (Auto) 1.3H, Neutrophils # (Auto) 5.6, Lymphocytes # (Auto) 1.1L, Monocytes # (Auto) 0.5, Eosinophils # (Auto) 0.1, Basophils # (Auto) 0.1, Nucleated Red Blood Cells % (auto) 0.0, Prothrombin Time 18.5H, Prothromb Time International Ratio 1.57, Anion Gap 6L, Glomerular Filtration Rate > 60.0, Blood Urea Nitrogen 17, Creatinine 1.16, Sodium Level 138, Potassium Level 4.0, Chloride Level 100, Carbon Dioxide Level 32, Calcium Level 8.4L Current Medications Current Medications Current Medications Medications (Trade) Dose Ordered Sig/Lico Route PRN Reason Start Time Stop Time Status Last Admin Dose Admin Acetaminophen (Tylenol Tab) 1,000 mg TID PO 07/04/19 16:00 07/06/19 11:30 DC 07/06/19 08:49 Acetaminophen (Tylenol Tab) 1,000 mg TID PRN PO fever/pain 07/06/19 11:30 Aspirin (Aspirin Chewable) 81 mg DAILY PEG 07/05/19 09:00 07/07/19 07:39 Atorvastatin Calcium (Lipitor) 20 mg QHS PO 07/04/19 21:00 07/06/19 21:33 Bisacodyl (Dulcolax Suppository) 10 mg DAILYPRN PRN VT CONSTIPATION 07/04/19 15:00 Carvedilol (COReg) 6.25 mg BID PO 07/04/19 21:00 07/07/19 07:39 Dextrose (Dextrose 50%) 25 ml ASDIRECTED PRN IV SEE LABEL COMMENTS 07/04/19 15:00 Docusate Sodium (Colace) 100 mg BID PO 07/04/19 21:00 07/07/19 07:40 Enoxaparin Sodium (Lovenox) 90 mg Q12H SC 07/06/19 09:00 07/07/19 07:39 Furosemide (Lasix) 80 mg DAILY PO 07/05/19 09:00 07/07/19 07:40 Gabapentin (Neurontin) 100 mg BID PO 07/04/19 21:00 07/07/19 07:40 Glucagon (Glucagon) 1 mg ASDIRECTED PRN SC SEE LABEL COMMENTS 07/04/19 15:00 Glucose (Glucose) 16 GM ASDIRECTED PRN PO SEE LABEL COMMENTS 07/04/19 15:00 Home Med (Med Rec Complete!) ASDIRECTED XX 07/04/19 15:30 07/04/19 15:32 DC Insulin Human Lispro (HumaLOG INSULIN) SEE PROTOCOL TABLE AC SC 07/04/19 17:30 07/07/19 07:41 Insulin Human Lispro (HumaLOG INSULIN) SEE PROTOCOL TABLE QHS SC 07/04/19 21:00 Magnesium Hydroxide (Milk Of Magnesia) 30 ml DAILYPRN PRN PO CONSTIPATION 07/04/19 15:00 Metformin HCl (Glucophage) 1,000 mg BID@0818 PO 07/04/19 18:00 07/07/19 07:39 Multivitamins (Theragram-M) 1 tab DAILY PO 07/05/19 09:00 07/07/19 07:40 Ondansetron HCl (Zofran Odt) 4 mg Q8HP PRN PO NAUSEA OR VOMITING 07/05/19 08:45 07/05/19 09:14 Oxycodone HCl (Roxicodone, Oxyir) 5 mg Q4HP PRN PO PAIN 07/04/19 15:00 07/07/19 06:55 Senna (Senokot) 1 tab QHS PO 07/04/19 21:00 07/06/19 21:34 Spironolactone (Aldactone) 25 mg QAM PO 07/05/19 09:00 07/07/19 07:39 Vitamin D (Vitamin D) 1,000 units DAILY PO 07/05/19 09:00 07/07/19 07:39 Warfarin Sodium (Coumadin) 2 mg DAILY@17 PO 07/06/19 17:00 07/06/19 17:38 Warfarin Sodium (Coumadin) 5 mg DAILY@17 PO 07/06/19 17:00 07/06/19 17:38 Zinc Oxide (Boudreauxs Butt Paste) sacrum BID TOP 07/04/19 21:00 07/07/19 07:42 SUJATA NERI MD Jul 07, 2019 09:48
--- NOTE | 2019-07-07 11:31 | IPNPDOC ---
Text Note Date of Service The patient was seen on 07/07/19. NOTE Man Wilhelm is a 69-year-old male, admitted to inpatient rehabilitation unit [facility] post right BKA. Subjective:: Patient has no complaints at this time. Denies chest pain, weak ness, chills, shortness of breath. Objective: GENERAL: NAD SKIN : Warm, dry intact HEENT: Atraumatic, normocephalic, PERRL, moist mucous membrane CARDIOVASCULAR: Regular rate and rhythm, S1S2, no JVD, edema to left lower extremity RESP: CTAB, no accessory muscle use noted ABDOMEN: BS+ non distended non tender MS: right BKA NEURO: Alert and oriented x 3, CN2-12 grossly intact PSYCH: no anxiety or agitation, appropriate mood and affect. A/P PAD -with recent right toe infection, non healing -S/P right BKA -Rehabilitation by primary team Hypertension -Stable, controlled -Continue current medications,and monitoring per unit protocol CAD without angina -CAD risk factor modifications Chronic atrial fibrillation -now pacemaker dependent. -Rate is controlled -INR subtherapeutic with increased dose of warfarin. -bridging with Lovenox due to recent surgical intervention and high risk of embolic event -Continue warfarin for target INR 2-3 Type 2 diabetes mellitus -Fingerstick monitoring prior to meals and at bedtime -Metformin 1000 mg twice a day Combined heart failure -Chronic, currently euvolemic -Fluid restriction, 1800 mL a day -Strict input and output monitoring -Continue Lasix with electrolytes monitoring DVT prophylaxis -Fully anticoagulated VS,Fishbone, I+O VS, Fishbone, I+O Laboratory Tests 07/07/19 06:14 Red Blood Count 3.40 L, Mean Corpuscular Volume 90.0, Mean Corpuscular Hemoglobin 27.6, Mean Corpuscular Hemoglobin Concent 30.7 L, Red Cell Distribution Width 18.3 H, Neutrophils (%) (Auto) 74.8 H, Lymphocytes (%) (Auto) 14.7 L, Monocytes (%) (Auto) 7.1 H, Eosinophils (%) (Auto) 0.8, Basophils (%) (Auto) 1.3 H, Neutrophils # (Auto) 5.6, Lymphocytes # (Auto) 1.1 L, Monocytes # (Auto) 0.5, Eosinophils # (Auto) 0.1, Basophils # (Auto) 0.1, Calcium Level 8.4 L Vital Signs Date Time Temp Pulse Resp B/P (MAP) Pulse Ox O2 Delivery O2 Flow Rate FiO2 07/07/19 07:39 63 132/70 07/07/19 07:25 16 07/07/19 06:00 97.3 93 I&O- Last 24 Hours up to 6 AM 07/07/19 05:59 Intake Total 1190 ml Output Total 1350 ml Balance -160 ml KATHRYN ALDRIDGE [facility] Jul 07, 2019 11:31
[2019-07-07 14:00] VITALS: BP 148/67
[2019-07-07] MEDS: WARFARIN SOD 4 MG TAB PO SCH (17:26)
[2019-07-07 20:00] VITALS: BP 107/53
[2019-07-07] MEDS: ATORVASTATIN 20 MG TAB PO SCH (22:37)
[2019-07-07] MEDS: SENNA 8.6 MG TAB (SENOKOT) PO SCH (22:37)
[2019-07-07] MEDS: ONDANSETRON 4 MG ORAL DISINTEGRATING TAB (Q0162 PER 1MG) PO PRN (23:38)
[2019-07-08 06:00] VITALS: BP 145/72
[2019-07-08] MEDS: oxyCODONE 5MG TAB PO PRN (06:20)
[2019-07-08 07:22] LABS: INR 1.74; PROTHROMBIN TIME 20.1 SECONDS (11.8-14.0)
[2019-07-08] MEDS: ENOXAPARIN 100MG/1ML SYRINGE (J1650) SC SCH ×2 (09:09→21:41)
[2019-07-08] MEDS: SPIRONOLACTONE 25 MG TAB PO SCH (09:10)
[2019-07-08] MEDS: HumaLOG INSULIN (NovoLOG) PER UNIT SC SCH ×4 (09:10→21:00)
[2019-07-08] MEDS: MULTIVITAMINS/MINERALS THERAP 1 TAB PO SCH (09:10)
[2019-07-08] MEDS: FUROSEMIDE 80 MG TAB PO SCH (09:11)
[2019-07-08] MEDS: metFORMIN (GLUCOPHAGE) 1000 MG TABLET PO SCH ×2 (09:11→17:40)
[2019-07-08] MEDS: VITAMIN D 1,000 INTERNATIONAL UNITS TABLET PO SCH (09:11)
[2019-07-08] MEDS: DOCUSATE SODIUM 100 MG CAP PO SCH ×2 (09:12→21:41)
[2019-07-08] MEDS: ASPIRIN 81 MG CHEW TABLET PEG SCH (09:12)
[2019-07-08] MEDS: CARVedilol 6.25 MG TAB PO SCH ×2 (09:12→21:42)
[2019-07-08] MEDS: GABAPENTIN 100 MG CAP PO SCH ×2 (09:12→21:41)
[2019-07-08] MEDS: BOUDREAUX'S BUTT PASTE TOP SCH ×2 (09:14→21:00)
[2019-07-08] MEDS: ONDANSETRON 4 MG ORAL DISINTEGRATING TAB (Q0162 PER 1MG) PO PRN (09:59)
--- NOTE | 2019-07-08 11:37 | IPNPDOC ---
Text Note Date of Service The patient was seen on 07/08/19. NOTE Man Wilhelm is a 69-year-old male, admitted to inpatient rehabilitation unit status post right BKA. Subjective::Complains of right knee pain, Denies chest pain, weakness, chills, shortness of breath. Objective: GENERAL: NAD SKIN : Warm, dry intact HEENT: Atraumatic, normocephalic, PERRL, moist mucous membrane CARDIOVASCULAR: Regular rate and rhythm, S1S2, no JVD, edema to left lower extremity RESP: CTAB, no accessory muscle use noted ABDOMEN: BS+ non distended non tender MS: right BKA NEURO: Alert and oriented x 3, CN2-12 grossly intact PSYCH: no anxiety or agitation, appropriate mood and affect. A/P PAD -S/P right BKA for right toe infection which progressed to gangrene/sepsis -Rehabilitation by primary team Hypertension -Stable, controlled -Continue current medications,and monitoring per unit protocol CAD without angina -CAD risk factor modifications Chronic atrial fibrillation -now pacemaker dependent. -Rate is controlled -INR subtherapeutic at 1.7 today. -continued bridging with Lovenox due to recent surgical intervention and high risk of embolic event -Continue warfarin for target INR 2-3 Type 2 diabetes mellitus -Fingerstick monitoring prior to meals and at bedtime -Metformin 1000 mg twice a day Combined heart failure -Chronic, currently euvolemic -Fluid restriction, 1800 mL a day -Strict input and output monitoring -Continue Lasix with electrolytes monitoring DVT prophylaxis -Fully anticoagulated VS,Fishbone, I+O VS, Fishbone, I+O Vital Signs Date Time Temp Pulse Resp B/P (MAP) Pulse Ox O2 Delivery O2 Flow Rate FiO2 07/08/19 09:12 71 145/72 07/08/19 06:50 18 07/08/19 06:00 97.1 95 I&O- Last 24 Hours up to 6 AM 07/08/19 06:00 Intake Total 1620 ml Output Total 200 ml Balance 1420 ml KATHRYN ALDRIDGE [facility] Jul 08, 2019 11:37
[2019-07-08 14:00] VITALS: BP 125/57
[2019-07-08] MEDS: WARFARIN SOD 4 MG TAB PO SCH (17:41)
[2019-07-08 20:00] VITALS: BP 144/65
[2019-07-08] MEDS: SENNA 8.6 MG TAB (SENOKOT) PO SCH (21:41)
[2019-07-08] MEDS: ATORVASTATIN 20 MG TAB PO SCH (21:41)
[2019-07-09] MEDS: ACETAMINOPHEN 500 MG TAB PO PRN ×2 (00:45→09:01)
[2019-07-09 05:52] VITALS: BP 149/70
[2019-07-09 07:02] LABS: HEMATOCRIT 29.8 % (42.0-52.0); HEMOGLOBIN 8.9 g/dl (13.5-17.5); MEAN CORPUSCULAR HEMOGLOBIN 27.1 pg (27.0-33.0); MEAN CORPUSCULAR HGB CONC 29.9 g/dl (32.0-36.5); MEAN CORPUSCULAR VOLUME 90.6 fl (80.0-96.0); PLATELET COUNT, AUTOMATED 381 10^3/uL (150-450); RED BLOOD COUNT 3.29 10^6/uL (4.30-6.10)
[2019-07-09 07:30] LABS: INR 1.85; PROTHROMBIN TIME 21.1 SECONDS (11.8-14.0)
[2019-07-09] MEDS: MULTIVITAMINS/MINERALS THERAP 1 TAB PO SCH (08:57)
[2019-07-09] MEDS: ASPIRIN 81 MG CHEW TABLET PEG SCH (08:57)
[2019-07-09] MEDS: ENOXAPARIN 100MG/1ML SYRINGE (J1650) SC SCH ×2 (08:57→20:35)
[2019-07-09] MEDS: VITAMIN D 1,000 INTERNATIONAL UNITS TABLET PO SCH (08:58)
[2019-07-09] MEDS: GABAPENTIN 100 MG CAP PO SCH ×2 (08:58→20:34)
[2019-07-09] MEDS: FUROSEMIDE 80 MG TAB PO SCH (08:58)
[2019-07-09] MEDS: metFORMIN (GLUCOPHAGE) 1000 MG TABLET PO SCH ×2 (08:58→17:46)
[2019-07-09] MEDS: DOCUSATE SODIUM 100 MG CAP PO SCH ×2 (08:59→20:34)
[2019-07-09] MEDS: CARVedilol 6.25 MG TAB PO SCH ×2 (08:59→20:34)
[2019-07-09] MEDS: SPIRONOLACTONE 25 MG TAB PO SCH (08:59)
[2019-07-09] MEDS: HumaLOG INSULIN (NovoLOG) PER UNIT SC SCH ×4 (09:00→19:57)
[2019-07-09] MEDS: BOUDREAUX'S BUTT PASTE TOP SCH ×2 (09:00→20:35)
[2019-07-09 14:00] VITALS: BP 126/60
[2019-07-09] MEDS: WARFARIN SOD 4 MG TAB PO SCH (17:46)
[2019-07-09 20:00] VITALS: BP 118/74
[2019-07-09] MEDS: SENNA 8.6 MG TAB (SENOKOT) PO SCH (20:33)
[2019-07-09] MEDS: ATORVASTATIN 20 MG TAB PO SCH (20:34)
[2019-07-10 06:00] VITALS: BP 153/66
[2019-07-10 06:33] LABS: INR 2.21; PROTHROMBIN TIME 24.3 SECONDS (11.8-14.0)
--- NOTE | 2019-07-10 06:57 | IPN ---
DATE OF SERVICE: 07/09/2019 The patient on acute rehab unit having had a right [id number]. He continues to do well. Vital signs are stable. He has been afebrile. He has history of diabetes, continues on metformin. Fasting blood sugar was 111. He has a history of congestive heart failure (CHF). He continues on fluid restriction and Lasix. History of hypertension clinically stable. History of atrial fibrillation. His international normalized ratio (INR) is 1.85 but has slowly been coming up. He is on Lovenox, which he will remain on until his INR is greater than 2 or is between 2 and 3. INR today is 1.8.5. The patient was feeling well, had no complaints. OBJECTIVE: Blood pressure 126/60, pulse 88, respirations 18, temperature 97.1, oxygen saturation 97% on room air. Patient is alert and oriented times three. Pupils equal and reactive to light. Pharynx, tongue, and gum is pink and moist. Tongue is midline. Neck: Supple without lymphadenopathy. Chest: Clear to auscultation, without wheeze or retraction. Heart is regular. Abdomen: Benign. Bowel sounds positive. Genitourinary ()/rectal not done. Extremities: He has right [id number]. Dressing is dry and intact. Skin: Warm and dry. Peripheral pulse equal and palpable bilaterally. Cranial nerves II-XII grossly intact. IMPRESSION AND PLAN: 1. Status post right [id number] (BKA) for right toe infection, which progressed to gangrene and sepsis. Continue rehabilitation. 2. Hypertension, stable, controlled. 3. Coronary heart disease without angina. Continue risk factor modifications. 4. Chronic atrial fibrillation (AFib), pacemaker, automatic implantable cardioverter defibrillator (AICD). Continue followup with Dr. Santos. Continue Coumadin. INR was 1.7 yesterday. It is up to 1.85. Continue Lovenox until INR is 2-3. 5. Type 2 diabetes. Continue fingerstick blood sugars. Continue metformin 1000 twice a day. 6. Congestive heart failure, systolic and diastolic. Continue fluid restriction. Lasix is ordered. Monitor electrolytes. 7. Deep venous thrombosis (DVT) prophylaxis. Continues on Coumadin and Lovenox.
[2019-07-10] MEDS: ASPIRIN 81 MG CHEW TABLET PEG SCH (09:17)
[2019-07-10] MEDS: HumaLOG INSULIN (NovoLOG) PER UNIT SC SCH ×4 (09:17→19:50)
[2019-07-10] MEDS: VITAMIN D 1,000 INTERNATIONAL UNITS TABLET PO SCH (09:17)
[2019-07-10] MEDS: MULTIVITAMINS/MINERALS THERAP 1 TAB PO SCH (09:17)
[2019-07-10] MEDS: metFORMIN (GLUCOPHAGE) 1000 MG TABLET PO SCH (09:17)
[2019-07-10] MEDS: GABAPENTIN 100 MG CAP PO SCH ×2 (09:17→20:13)
[2019-07-10] MEDS: FUROSEMIDE 80 MG TAB PO SCH (09:18)
[2019-07-10] MEDS: DOCUSATE SODIUM 100 MG CAP PO SCH ×2 (09:18→20:13)
[2019-07-10] MEDS: BOUDREAUX'S BUTT PASTE TOP SCH ×2 (09:18→20:16)
[2019-07-10] MEDS: CARVedilol 6.25 MG TAB PO SCH ×2 (09:18→20:13)
[2019-07-10] MEDS: SPIRONOLACTONE 25 MG TAB PO SCH (09:18)
[2019-07-10 14:00] VITALS: BP 130/61
[2019-07-10] MEDS: metFORMIN (GLUCOPHAGE) 500 MG TAB PO SCH (17:51)
[2019-07-10] MEDS: WARFARIN SOD 4 MG TAB PO SCH (17:51)
[2019-07-10] MEDS: ACETAMINOPHEN 500 MG TAB PO PRN (18:01)
[2019-07-10 20:05] VITALS: BP 127/61
[2019-07-10] MEDS: SENNA 8.6 MG TAB (SENOKOT) PO SCH (20:13)
[2019-07-10] MEDS: ATORVASTATIN 20 MG TAB PO SCH (20:13)
[2019-07-10] MEDS: oxyCODONE 5MG TAB PO PRN (20:14)
[2019-07-11 06:41] VITALS: BP 130/73
[2019-07-11 07:24] LABS: INR 2.16; PROTHROMBIN TIME 23.9 SECONDS (11.8-14.0)
[2019-07-11] MEDS: FUROSEMIDE 80 MG TAB PO SCH (08:24)
[2019-07-11] MEDS: SPIRONOLACTONE 25 MG TAB PO SCH (08:24)
[2019-07-11] MEDS: VITAMIN D 1,000 INTERNATIONAL UNITS TABLET PO SCH (08:24)
[2019-07-11] MEDS: metFORMIN (GLUCOPHAGE) 500 MG TAB PO SCH ×2 (08:24→17:21)
[2019-07-11] MEDS: MULTIVITAMINS/MINERALS THERAP 1 TAB PO SCH (08:25)
[2019-07-11] MEDS: DOCUSATE SODIUM 100 MG CAP PO SCH ×2 (08:25→20:22)
[2019-07-11] MEDS: GABAPENTIN 100 MG CAP PO SCH ×2 (08:25→20:22)
[2019-07-11] MEDS: CARVedilol 6.25 MG TAB PO SCH ×2 (08:25→20:22)
[2019-07-11] MEDS: ASPIRIN 81 MG CHEW TABLET PEG SCH (08:25)
[2019-07-11] MEDS: HumaLOG INSULIN (NovoLOG) PER UNIT SC SCH ×4 (08:26→19:54)
[2019-07-11] MEDS: ACETAMINOPHEN 500 MG TAB PO PRN (08:31)
--- NOTE | 2019-07-11 10:42 | IPNPDOC ---
Text Note Date of Service The patient was seen on 07/11/19. NOTE Man Wilhelm is a 69-year-old male, admitted to inpatient rehabilitation unit status post right BKA. Subjective::Has no complaints this am, working with therapist. Denies chest pain, weakness, chills, shortness of breath. Objective: GENERAL: NAD SKIN : Warm, dry dressing to right BKA intact HEENT: Atraumatic, normocephalic, PERRL, moist mucous membrane CARDIOVASCULAR: Regular rate and rhythm, S1S2, no JVD, edema to left lower extremity RESP: CTAB, no accessory muscle use noted ABDOMEN: BS+ non distended non tender MS: right BKA NEURO: Alert and oriented x 3, CN2-12 grossly intact PSYCH: no anxiety or agitation, appropriate mood and affect. A/P PAD -S/P right BKA for right toe infection which progressed to gangrene/sepsis -Rehabilitation by primary team Hypertension -Stable, controlled -Continue current medications,and monitoring per unit protocol CAD without angina -CAD risk factor modifications Chronic atrial fibrillation -now pacemaker dependent. -Rate is controlled -INR is therapeutic at 2.16 today. -Continue warfarin for target INR 2-3 Type 2 diabetes mellitus -Fingerstick monitoring prior to meals and at bedtime -Metformin 1000 mg twice a day Combined heart failure -euvolemic -continue guideline directed. Medical therapy for treatment of heart failure -Monitor electrolytes DVT prophylaxis -Fully anticoagulated VS,Fishbone, I+O VS, Fishbone, I+O Vital Signs Date Time Temp Pulse Resp B/P (MAP) Pulse Ox O2 Delivery O2 Flow Rate FiO2 07/11/19 08:25 97 130/73 07/11/19 06:41 97.1 18 98 I&O- Last 24 Hours up to 6 AM 07/11/19 06:00 Intake Total 820 ml Output Total 1325 ml Balance -505 ml KATHRYN ALDRIDGE Jul 11, 2019 10:42
[2019-07-11 14:00] VITALS: BP 136/74
[2019-07-11] MEDS: WARFARIN SOD 4 MG TAB PO SCH (17:21)
[2019-07-11] MEDS: BOUDREAUX'S BUTT PASTE TOP SCH ×2 (17:22→20:21)
[2019-07-11 20:12] VITALS: BP 120/57
[2019-07-11] MEDS: ATORVASTATIN 20 MG TAB PO SCH (20:22)
[2019-07-11] MEDS: SENNA 8.6 MG TAB (SENOKOT) PO SCH (20:22)
[2019-07-12 05:46] VITALS: BP 103/54
[2019-07-12] MEDS: ACETAMINOPHEN 500 MG TAB PO PRN ×2 (06:36→21:14)
[2019-07-12 07:13] LABS: HEMATOCRIT 34.4 % (42.0-52.0); HEMOGLOBIN 10.4 g/dl (13.5-17.5); MEAN CORPUSCULAR HEMOGLOBIN 27.4 pg (27.0-33.0); MEAN CORPUSCULAR HGB CONC 30.2 g/dl (32.0-36.5); MEAN CORPUSCULAR VOLUME 90.8 fl (80.0-96.0); PLATELET COUNT, AUTOMATED 340 10^3/uL (150-450); RED BLOOD COUNT 3.79 10^6/uL (4.30-6.10); WHITE BLOOD COUNT 5.5 10^3/uL (4.0-10.0)
[2019-07-12 07:24] LABS: INR 2.56; PROTHROMBIN TIME 27.3 SECONDS (11.8-14.0)
[2019-07-12 07:46] LABS: ALBUMIN 2.8 GM/DL (3.2-5.2); ALT/SGPT 32 U/L (12-78); BILIRUBIN,TOTAL 0.3 MG/DL (0.2-1.0); BLOOD UREA NITROGEN 28 MG/DL (7-18); CALCIUM LEVEL 8.5 MG/DL (8.8-10.2); CARBON DIOXIDE LEVEL 32 MEQ/L (21-32); CHLORIDE LEVEL 99 MEQ/L (98-107); CREATININE FOR GFR 1.26 MG/DL (0.70-1.30); GLOMERULAR FILTRATION RATE > 60.0 (>42); GLUCOSE, FASTING 171 MG/DL (70-100); MAGNESIUM LEVEL 2.1 MG/DL (1.8-2.4); POTASSIUM SERUM 4.3 MEQ/L (3.5-5.1); SODIUM LEVEL 137 MEQ/L (136-145); TOTAL PROTEIN 8.8 GM/DL (6.4-8.2)
[2019-07-12] MEDS: FUROSEMIDE 80 MG TAB PO SCH (09:00)
[2019-07-12] MEDS: ASPIRIN 81 MG CHEW TABLET PEG SCH (09:19)
[2019-07-12] MEDS: SPIRONOLACTONE 25 MG TAB PO SCH (09:19)
[2019-07-12] MEDS: VITAMIN D 1,000 INTERNATIONAL UNITS TABLET PO SCH (09:19)
[2019-07-12] MEDS: MULTIVITAMINS/MINERALS THERAP 1 TAB PO SCH (09:19)
[2019-07-12] MEDS: DOCUSATE SODIUM 100 MG CAP PO SCH ×2 (09:19→21:12)
[2019-07-12] MEDS: GABAPENTIN 100 MG CAP PO SCH ×2 (09:19→21:11)
[2019-07-12] MEDS: metFORMIN (GLUCOPHAGE) 500 MG TAB PO SCH ×2 (09:20→17:37)
[2019-07-12] MEDS: BOUDREAUX'S BUTT PASTE TOP SCH ×2 (09:21→21:15)
[2019-07-12] MEDS: CARVedilol 6.25 MG TAB PO SCH ×2 (09:24→21:11)
[2019-07-12] MEDS: HumaLOG INSULIN (NovoLOG) PER UNIT SC SCH ×4 (09:28→20:07)
[2019-07-12 14:00] VITALS: BP 115/56
--- NOTE | 2019-07-12 14:20 | IPNPDOC ---
Text Note Date of Service The patient was seen on 07/12/19. NOTE Man Wilhelm is a 69-year-old male, admitted to inpatient rehabilitation unit s tatus post right BKA. Subjective:: changed his right stump dressing today. Reports wound looked b zuleyka than he ever hoped, healing well. Denies discomfort Objective: GENERAL: NAD SKIN : Warm, dry dressing to right BKA intact HEENT: Atraumatic, normocephalic, PERRL, moist mucous membrane CARDIOVASCULAR: Regular rate and rhythm, S1S2, no JVD, edema to left lower extremity RESP: CTAB, no accessory muscle use noted ABDOMEN: BS+ non distended non tender MS: right BKA NEURO: Alert and oriented x 3, CN2-12 grossly intact PSYCH: no anxiety or agitation, appropriate mood and affect. A/P PAD -S/P right BKA for right toe infection which progressed to gangrene/sepsis -Rehabilitation by primary team Hypertension -Stable, controlled -Continue current medications,and monitoring per unit protocol CAD without angina -, Continue CAD risk factor modifications with Coreg, aspirin, statin Chronic atrial fibrillation -now pacemaker dependent. -Rate is controlled -INR is therapeutic at 2.5 today. -Continue warfarin for target INR 2-3 Type 2 diabetes mellitus -Fingerstick monitoring prior to meals and at bedtime -Metformin 1000 mg twice a day Combined heart failure -euvolemic -continue (GDMT)guideline directed Medical therapy for treatment of heart failure -Monitor electrolytes DVT prophylaxis -Fully anticoagulated VS,Fishbone, I+O VS, Fishbone, I+O Laboratory Tests 07/12/19 06:55 Red Blood Count 3.79 L, Mean Corpuscular Volume 90.8, Mean Corpuscular Hemoglobin 27.4, Mean Corpuscular Hemoglobin Concent 30.2 L, Red Cell Distribution Width 18.9 H, Calcium Level 8.5 L, Aspartate Amino Transf (AST/SGOT) 21, Alanine Aminotransferase (ALT/SGPT) 32, Alkaline Phosphatase 140 H, Total Bilirubin 0.3, Total Protein 8.8 H, Albumin 2.8 L Vital Signs Date Time Temp Pulse Resp B/P (MAP) Pulse Ox O2 Delivery O2 Flow Rate FiO2 07/12/19 09:24 72 135/63 07/12/19 05:46 97.1 18 98 I&O- Last 24 Hours up to 6 AM 07/12/19 05:59 Intake Total 1080 ml Output Total 750 ml Balance 330 ml KATHRYN ALDRIDGE DISTRIBUTION ENGINEER Jul 12, 2019 14:20
--- NOTE | 2019-07-12 15:05 | IPNPDOC ---
PM&R Progress Note DATE OF SERVICE: Jul 11, 2019 Security Inspector Progress Note Subjective: Patient reports he believes his mood is much better and that he is a fighter and know she will walk again and will not be limited by this new condition. He reports having a lot of support at home. REVIEW OF SYSTEMS: The following is a completed review of systems and has been reviewed. Review of systems otherwise unremarkable. PAIN: Patient self reports no pain EYES: No recent vision changes EARS, NOSE, & THROAT: No throat pain, or dysphagia, or rhinorrhea CARDIOVASCULAR: Denies chest pain or palpitations PULMONARY: Denies shortness of breath GASTROINTESTINAL: Denies constipation/diarrhea GENITOURINARY: no dysuria MUSCULOSKELETAL: right bka NEUROLOGICAL: no vocal Tremor or seizure activity HEMATOLOGICAL: anemia SKIN: bka incision PSYCHIATRIC: Unremarkable All other review of systems found to be negative. PHYSICAL EXAMINATION: VITAL SIGNS: Please see below. GENERAL: Pleasant and cooperative. No acute distress. HEENT: PERRL. Extraocular movements intact. Clear conjunctiva CARDIOVASCULAR: Regular rate and rhythm. No murmurs, rubs, or gallops LUNGS: Clear to auscultation bilaterally. No wheezes. No rhonchi ABDOMEN: Soft, nontender, nondistended. Positive bowel sounds. Normal active bowel sounds NEUROLOGICAL: Alert and oriented times three. Cranial nerves II through XII grossly intact. Sensation grossly intact EXTREMITIES: 5/\5 strength bilateral upper extremities. 5\5 strength right hip flexion knee flexion knee extension. 5/5 strength in left lower extremity. (-) Neers and Rodriguez maneuver bilat SKIN: right BKLA incision c/d/i, No induration ASSESSMENT:69-year-old M with past medical history of CAD s/p CABG, CKD 3, DM2 who presents status post right BKA PLAN: 1. Rehab: PT- strengthen left LE, maintain ROM right LE, improve endurance for household ambulation, limb desensitization- able to ambulate further OT- strengthen bilat UE and trunk, teach adaptive equipment use prn, maintain ROM of bilat UE and educate on shoulder stabilization exercises 2. Cardiac: pmh CAD sp CABG with PM/defibrillator, CHF- c/u lasix, aldactone, Co-reg, fluid restrict to 1800c- medicine consulted to assist in management -Afib- c/u coumadin goal 2-3,s/p Lovenox bridge- c/u Coumadin 3. neuro: pmh CVA with no obvious deficits, c/u statin therapy and ASA for secondary prevention 4. Resp: encourage incentive spirometry 5. Vascular: s/p right BKA -Follow-up appointment with Dr Stewart 07-20-19 8 am 6. 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 Endo: pmh DM, c/u metformin and ISS coverage 8. Skin: change dressing BID-patient learning to change his own acewrap 9. GI: optimize bowel care 10. : monitor PVRs 11. DVT ppx: on coumadin 12. Pain: c/u Tylenol prn and gabapentin 13. Dispo: 07-15-19 to home, progressing towards goals Allergies Coded Allergies: No Known Drug Allergies (Verified Allergy, Unknown, 07/04/19) Vital Signs Vital Signs Date Time Temp Pulse Resp B/P (MAP) Pulse Ox O2 Delivery O2 Flow Rate FiO2 07/12/19 09:24 72 135/63 07/12/19 05:46 97.1 18 98 Laboratory Data CBC/BMP Laboratory Tests 07/12/19 06:55 Red Blood Count 3.79 L, Mean Corpuscular Volume 90.8, Mean Corpuscular H emoglobin 27.4, Mean Corpuscular Hemoglobin Concent 30.2 L, Red Cell Distribution Width 18.9 H, Calcium Level 8.5 L, Aspartate Amino Transf (AST/SGOT) 21, Alanine Aminotransferase (ALT/SGPT) 32, Alkaline Phosphatase 140 H, Total Bilirubin 0.3, Total Protein 8.8 H, Albumin 2.8 L Labs 24H Laboratory Tests 2 07/11/19 17:02: Bedside Glucose (Misc Panel) 110 07/11/19 19:46: Bedside Glucose (Misc Panel) 137H 07/12/19 06:06: Bedside Glucose (Misc Panel) 128H 07/12/19 06:55: Nucleated Red Blood Cells % (auto) 0.0, Prothrombin Time 27.3H, Prothromb Time International Ratio 2.56, Anion Gap 6L, Glomerular Filtration Rate > 60.0, Blood Urea Nitrogen 28H, Creatinine 1.26, Sodium Level 137, Potassium Level 4.3, Chloride Level 99, Carbon Dioxide Level 32, Calcium Level 8.5L, Aspartate Amino Transf (AST/SGOT) 21, Alanine Aminotransferase (ALT/SGPT) 32, Alkaline Phosphatase 140H, Total Bilirubin 0.3, Total Protein 8.8H, Albumin 2.8L, Magnesium Level 2.1, Albumin/Globulin Ratio 0.47L 07/12/19 12:34: Bedside Glucose (Misc Panel) 103 Current Medications Current Medications Current Medications Medications (Trade) Dose Ordered Sig/Lico Route PRN Reason Start Time Stop Time Status Last Admin Dose Admin Acetaminophen (Tylenol Tab) 1,000 mg TID PO 07/04/19 16:00 07/06/19 11:30 DC 07/06/19 08:49 Acetaminophen (Tylenol Tab) 1,000 mg TID PRN PO fever/pain 07/06/19 11:30 07/12/19 06:36 Aspirin (Aspirin Chewable) 81 mg DAILY PEG 07/05/19 09:00 07/12/19 09:19 Atorvastatin Calcium (Lipitor) 20 mg QHS PO 07/04/19 21:00 07/11/19 20:22 Bisacodyl (Dulcolax Suppository) 10 mg DAILYPRN PRN [place] CONSTIPATION 07/04/19 15:00 Carvedilol (COReg) 6.25 mg BID PO 07/04/19 21:00 07/12/19 09:24 Dextrose (Dextrose 50%) 25 ml ASDIRECTED PRN IV SEE LABEL COMMENTS 07/04/19 15:00 Docusate Sodium (Colace) 100 mg BID PO 07/04/19 21:00 07/12/19 09:19 Enoxaparin Sodium (Lovenox) 90 mg Q12H SC 07/06/19 09:00 07/10/19 08:22 DC 07/09/19 20:35 Furosemide (Lasix) 80 mg DAILY PO 07/05/19 09:00 Future hold 07/11/19 08:24 Gabapentin (Neurontin) 100 mg BID PO 07/04/19 21:00 07/12/19 09:19 Glucagon (Glucagon) 1 mg ASDIRECTED PRN SC SEE LABEL COMMENTS 07/04/19 15:00 Glucose (Glucose) 16 GM ASDIRECTED PRN PO SEE LABEL COMMENTS 07/04/19 15:00 Home Med (Med Rec Complete!) ASDIRECTED XX 07/04/19 15:30 07/04/19 15:32 DC Insulin Human Lispro (HumaLOG INSULIN) SEE PROTOCOL TABLE AC SC 07/04/19 17:30 07/12/19 09:28 Insulin Human Lispro (HumaLOG INSULIN) SEE PROTOCOL TABLE QHS SC 07/04/19 21:00 Magnesium Hydroxide (Milk Of Magnesia) 30 ml DAILYPRN PRN PO CONSTIPATION 07/04/19 15:00 Metformin HCl (Glucophage) 500 mg BID@, PO 07/10/19 18:00 07/12/19 09:20 Metformin HCl (Glucophage) 500 mg BID@,18 PO 07/08/19 18:00 07/10/19 10:28 DC 07/10/19 09:17 Metformin HCl (Glucophage) 1,000 mg BID@, PO 07/04/19 18:00 07/08/19 12:17 DC 07/08/19 09:11 Multivitamins (Theragram-M) 1 tab DAILY PO 07/05/19 09:00 07/12/19 09:19 Ondansetron HCl (Zofran Odt) 4 mg Q8HP PRN PO NAUSEA OR VOMITING 07/05/19 08:45 07/08/19 09:59 Oxycodone HCl (Roxicodone, Oxyir) 5 mg Q4HP PRN PO PAIN 07/04/19 15:00 07/10/19 20:14 Senna (Senokot) 1 tab QHS PO 07/04/19 21:00 07/11/19 20:22 Spironolactone (Aldactone) 25 mg QAM PO 07/05/19 09:00 07/12/19 09:19 Vitamin D (Vitamin D) 1,000 units DAILY PO 07/05/19 09:00 07/12/19 09:19 Warfarin Sodium (Coumadin) 2 mg DAILY@17 PO 07/06/19 17:00 07/07/19 09:46 DC 07/06/19 17:38 Warfarin Sodium (Coumadin) 5 mg DAILY@17 PO 07/06/19 17:00 07/07/19 09:46 DC 07/06/19 17:38 Warfarin Sodium (Coumadin) 7.5 mg DAILY@17 PO 07/12/19 17:00 Warfarin Sodium (Coumadin) 8 mg DAILY@17 PO 07/07/19 17:00 07/12/19 09:49 DC 07/11/19 17:21 Zinc Oxide (Boudreauxs Butt Paste) sacrum BID TOP 07/04/19 21:00 07/12/19 09:21 SUJATA NERI MD Jul 12, 2019 15:05
--- NOTE | 2019-07-12 15:08 | IPNPDOC ---
PM&R Progress Note DATE OF SERVICE: Jul 12, 2019 National Insurance Officer Progress Note SUbjective: Patient reporting he feels comfortable wrapping his limb and is surprised at how weak his arms are. He reports right shoulder pain that is chronic in nature, declines directed treatment for it, but was taught to work on scapular stabilization exercises. REVIEW OF SYSTEMS: The following is a completed review of systems and has been reviewed. Review of systems otherwise unremarkable. PAIN: Patient self reports no pain EYES: No recent vision changes EARS, NOSE, & THROAT: No throat pain, or dysphagia, or rhinorrhea CARDIOVASCULAR: Denies chest pain or palpitations PULMONARY: Denies shortness of breath GASTROINTESTINAL: Denies constipation/diarrhea GENITOURINARY: no dysuria MUSCULOSKELETAL: right bka NEUROLOGICAL: no vocal Tremor or seizure activity HEMATOLOGICAL: anemia SKIN: bka incision PSYCHIATRIC: Unremarkable All other review of systems found to be negative. PHYSICAL EXAMINATION: VITAL SIGNS: Please see below. GENERAL: Pleasant and cooperative. No acute distress. HEENT: PERRL. Extraocular movements intact. Clear conjunctiva CARDIOVASCULAR: Regular rate and rhythm. No murmurs, rubs, or gallops LUNGS: Clear to auscultation bilaterally. No wheezes. No rhonchi ABDOMEN: Soft, nontender, nondistended. Positive bowel sounds. Normal active bowel sounds NEUROLOGICAL: Alert and oriented times three. Cranial nerves II through XII wesley ssly intact. Sensation grossly intact EXTREMITIES: 5/\5 strength bilateral upper extremities. 5\5 strength right hip flexion knee flexion knee extension. 5/5 strength in left lower extremity. (-) Neers and Rodriguez maneuver bilat SKIN: right BKLA incision c/d/i, No induration ASSESSMENT:69-year-old M with past medical history of CAD s/p CABG, CKD 3, DM2 who presents status post right BKA PLAN: 1. Rehab: PT- strengthen left LE, maintain ROM right LE, improve endurance for household ambulation, limb desensitization- able to ambulate further OT- strengthen bilat UE and trunk, teach adaptive equipment use prn, maintain ROM of bilat UE and educate on shoulder stabilization exercises 2. Cardiac: pmh CAD sp CABG with PM/defibrillator, CHF- c/u lasix, aldactone, Co-reg, fluid restrict to 1800c- medicine consulted to assist in management -Afib- c/u coumadin goal 2-3,s/p Lovenox bridge- c/u Coumadin 3. neuro: pmh CVA with no obvious deficits, c/u statin therapy and ASA for secondary prevention 4. Resp: encourage incentive spirometry 5. Vascular: s/p right BKA -Follow-up appointment with Dr Stewart 07-20-19 8 am 6. 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 Endo: pmh DM, c/u metformin and ISS coverage 8. Skin: change dressing BID-patient learning to change his own acewrap 9. GI: optimize bowel care 10. : monitor PVRs 11. DVT ppx: on coumadin 12. Pain: c/u Tylenol prn and gabapentin 13. Dispo: 07-15-19 to home, progressing towards goals Allergies Coded Allergies: No Known Drug Allergies (Verified Allergy, Unknown, 07/04/19) Vital Signs Vital Signs Date Time Temp Pulse Resp B/P (MAP) Pulse Ox O2 Delivery O2 Flow Rate FiO2 07/12/19 09:24 72 135/63 07/12/19 05:46 97.1 18 98 Laboratory Data CBC/BMP Laboratory Tests 07/12/19 06:55 Red Blood Count 3.79 L, Mean Corpuscular Volume 90.8, Mean Corpuscular Hemog lobin 27.4, Mean Corpuscular Hemoglobin Concent 30.2 L, Red Cell Distribution Width 18.9 H, Calcium Level 8.5 L, Aspartate Amino Transf (AST/SGOT) 21, Alanine Aminotransferase (ALT/SGPT) 32, Alkaline Phosphatase 140 H, Total Bilirubin 0.3, Total Protein 8.8 H, Albumin 2.8 L Labs 24H Laboratory Tests 2 07/11/19 17:02: Bedside Glucose (Misc Panel) 110 07/11/19 19:46: Bedside Glucose (Misc Panel) 137H 07/12/19 06:06: Bedside Glucose (Misc Panel) 128H 07/12/19 06:55: Nucleated Red Blood Cells % (auto) 0.0, Prothrombin Time 27.3H, Prothromb Time International Ratio 2.56, Anion Gap 6L, Glomerular Filtration Rate > 60.0, Blood Urea Nitrogen 28H, Creatinine 1.26, Sodium Level 137, Potassium Level 4.3, Chloride Level 99, Carbon Dioxide Level 32, Calcium Level 8.5L, Aspartate Amino Transf (AST/SGOT) 21, Alanine Aminotransferase (ALT/SGPT) 32, Alkaline Phosphatase 140H, Total Bilirubin 0.3, Total Protein 8.8H, Albumin 2.8L, Magnesium Level 2.1, Albumin/Globulin Ratio 0.47L 07/12/19 12:34: Bedside Glucose (Misc Panel) 103 Current Medications Current Medications Current Medications Medications (Trade) Dose Ordered Sig/Lico Route PRN Reason Start Time Stop Time Status Last Admin Dose Admin Acetaminophen (Tylenol Tab) 1,000 mg TID PO 07/04/19 16:00 07/06/19 11:30 DC 07/06/19 08:49 Acetaminophen (Tylenol Tab) 1,000 mg TID PRN PO fever/pain 07/06/19 11:30 07/12/19 06:36 Aspirin (Aspirin Chewable) 81 mg DAILY PEG 07/05/19 09:00 07/12/19 09:19 Atorvastatin Calcium (Lipitor) 20 mg QHS PO 07/04/19 21:00 07/11/19 20:22 Bisacodyl (Dulcolax Suppository) 10 mg DAILYPRN PRN [place] CONSTIPATION 07/04/19 15:00 Carvedilol (COReg) 6.25 mg BID PO 07/04/19 21:00 07/12/19 09:24 Dextrose (Dextrose 50%) 25 ml ASDIRECTED PRN IV SEE LABEL COMMENTS 07/04/19 15:00 Docusate Sodium (Colace) 100 mg BID PO 07/04/19 21:00 07/12/19 09:19 Enoxaparin Sodium (Lovenox) 90 mg Q12H SC 07/06/19 09:00 07/10/19 08:22 DC 07/09/19 20:35 Furosemide (Lasix) 80 mg DAILY PO 07/05/19 09:00 Future hold 07/11/19 08:24 Gabapentin (Neurontin) 100 mg BID PO 07/04/19 21:00 07/12/19 09:19 Glucagon (Glucagon) 1 mg ASDIRECTED PRN SC SEE LABEL COMMENTS 07/04/19 15:00 Glucose (Glucose) 16 GM ASDIRECTED PRN PO SEE LABEL COMMENTS 07/04/19 15:00 Home Med (Med Rec Complete!) ASDIRECTED XX 07/04/19 15:30 07/04/19 15:32 DC Insulin Human Lispro (HumaLOG INSULIN) SEE PROTOCOL TABLE AC SC 07/04/19 17:30 07/12/19 09:28 Insulin Human Lispro (HumaLOG INSULIN) SEE PROTOCOL TABLE QHS TX 07/04/19 21:00 Magnesium Hydroxide (Milk Of Magnesia) 30 ml DAILYPRN PRN PO CONSTIPATION 07/04/19 15:00 Metformin HCl (Glucophage) 500 mg BID@ PO 07/10/19 18:00 07/12/19 09:20 Metformin HCl (Glucophage) 500 mg BID@, PO 07/08/19 18:00 07/10/19 10:28 DC 07/10/19 09:17 Metformin HCl (Glucophage) 1,000 mg BID@,18 PO 07/04/19 18:00 07/08/19 12:17 DC 07/08/19 09:11 Multivitamins (Theragram-M) 1 tab DAILY PO 07/05/19 09:00 07/12/19 09:19 Ondansetron HCl (Zofran Odt) 4 mg Q8HP PRN PO NAUSEA OR VOMITING 07/05/19 08:45 07/08/19 09:59 Oxycodone HCl (Roxicodone, Oxyir) 5 mg Q4HP PRN PO PAIN 07/04/19 15:00 07/10/19 20:14 Senna (Senokot) 1 tab QHS PO 07/04/19 21:00 07/11/19 20:22 Spironolactone (Aldactone) 25 mg QAM PO 07/05/19 09:00 07/12/19 09:19 Vitamin D (Vitamin D) 1,000 units DAILY PO 07/05/19 09:00 07/12/19 09:19 Warfarin Sodium (Coumadin) 2 mg DAILY@17 PO 07/06/19 17:00 07/07/19 09:46 DC 07/06/19 17:38 Warfarin Sodium (Coumadin) 5 mg DAILY@17 PO 07/06/19 17:00 07/07/19 09:46 DC 07/06/19 17:38 Warfarin Sodium (Coumadin) 7.5 mg DAILY@17 PO 07/12/19 17:00 Warfarin Sodium (Coumadin) 8 mg DAILY@17 PO 07/07/19 17:00 07/12/19 09:49 DC 07/11/19 17:21 Zinc Oxide (Boudreauxs Butt Paste) sacrum BID TOP 07/04/19 21:00 07/12/19 09:21 SUJATA NERI MD Jul 12, 2019 15:08
[2019-07-12] MEDS ORDERED: WARFARIN SOD 7.5 MG TAB PO SCH (17:00)
[2019-07-12 20:00] VITALS: BP 144/63
[2019-07-12] MEDS: ATORVASTATIN 20 MG TAB PO SCH (21:11)
[2019-07-12] MEDS: SENNA 8.6 MG TAB (SENOKOT) PO SCH (21:12)
[2019-07-13 06:00] VITALS: BP 133/61
[2019-07-13 06:25] LABS: INR 2.93; PROTHROMBIN TIME 30.5 SECONDS (11.8-14.0)
[2019-07-13 07:28] LABS: BLOOD UREA NITROGEN 29 MG/DL (7-18); CALCIUM LEVEL 8.7 MG/DL (8.8-10.2); CARBON DIOXIDE LEVEL 30 MEQ/L (21-32); CHLORIDE LEVEL 101 MEQ/L (98-107); CREATININE FOR GFR 1.19 MG/DL (0.70-1.30); GLOMERULAR FILTRATION RATE > 60.0 (>42); GLUCOSE, FASTING 121 MG/DL (70-100); POTASSIUM SERUM 4.1 MEQ/L (3.5-5.1); SODIUM LEVEL 138 MEQ/L (136-145)
[2019-07-13] MEDS: HumaLOG INSULIN (NovoLOG) PER UNIT SC SCH ×4 (09:23→20:27)
[2019-07-13] MEDS: SPIRONOLACTONE 25 MG TAB PO SCH (09:24)
[2019-07-13] MEDS: VITAMIN D 1,000 INTERNATIONAL UNITS TABLET PO SCH (09:24)
[2019-07-13] MEDS: metFORMIN (GLUCOPHAGE) 500 MG TAB PO SCH ×2 (09:24→17:38)
[2019-07-13] MEDS: MULTIVITAMINS/MINERALS THERAP 1 TAB PO SCH (09:24)
[2019-07-13] MEDS: ASPIRIN 81 MG CHEW TABLET PEG SCH (09:24)
[2019-07-13] MEDS: DOCUSATE SODIUM 100 MG CAP PO SCH ×2 (09:24→20:26)
[2019-07-13] MEDS: GABAPENTIN 100 MG CAP PO SCH ×2 (09:24→20:26)
[2019-07-13] MEDS: CARVedilol 6.25 MG TAB PO SCH ×2 (09:25→20:26)
[2019-07-13] MEDS: BOUDREAUX'S BUTT PASTE TOP SCH ×2 (09:26→20:27)
[2019-07-13] MEDS: FUROSEMIDE 80 MG TAB PO SCH (12:05)
--- NOTE | 2019-07-13 12:52 | IPNPDOC ---
PM&R Progress Note DATE OF SERVICE: Jul 13, 2019 Focusing Machine Operator Progress Note Subjective: Patient reporting he believes he is ready to go home Thursday. He feels stronger and more confident. REVIEW OF SYSTEMS: The following is a completed review of systems and has been reviewed. Review of systems otherwise unremarkable. PAIN: Patient self reports no pain EYES: No recent vision changes EARS, NOSE, & THROAT: No throat pain, or dysphagia, or rhinorrhea CARDIOVASCULAR: Denies chest pain or palpitations PULMONARY: Denies shortness of breath GASTROINTESTINAL: Denies constipation/diarrhea GENITOURINARY: no dysuria MUSCULOSKELETAL: right bka NEUROLOGICAL: no vocal Tremor or seizure activity HEMATOLOGICAL: anemia SKIN: bka incision PSYCHIATRIC: Unremarkable All other review of systems found to be negative. PHYSICAL EXAMINATION: VITAL SIGNS: Please see below. GENERAL: Pleasant and cooperative. No acute distress. HEENT: PERRL. Extraocular movements intact. Clear conjunctiva CARDIOVASCULAR: Regular rate and rhythm. No murmurs, rubs, or gallops LUNGS: Clear to auscultation bilaterally. No wheezes. No rhonchi ABDOMEN: Soft, nontender, nondistended. Positive bowel sounds. Normal active bowel sounds NEUROLOGICAL: Alert and oriented times three. Cranial nerves II through XII grossly intact. Sensation grossly intact EXTREMITIES: 5/\5 strength bilateral upper extremities. 5\5 strength right hip flexion knee flexion knee extension. 5/5 strength in left lower extremity. (-) Neers and Rodriguez maneuver bilat SKIN: right BKLA incision c/d/i, No induration ASSESSMENT:69-year-old M with past medical history of CAD s/p CABG, CKD 3, DM2 who presents status post right BKA PLAN: 1. Rehab: PT- strengthen left LE, maintain ROM right LE, improve endurance for household ambulation, limb desensitization- able to ambulate further, nearing Mod-I OT- strengthen bilat UE and trunk, teach adaptive equipment use prn, maintain ROM of bilat UE and educate on shoulder stabilization exercises 2. Cardiac: pmh CAD sp CABG with PM/defibrillator, CHF- c/u lasix, aldactone, Co-reg, fluid restrict to 1800c- medicine consulted to assist in management -Afib- c/u coumadin goal 2-3,s/p Lovenox bridge- c/u Coumadin 3. neuro: pmh CVA with no obvious deficits, c/u statin therapy and ASA for secondary prevention 4. Resp: encourage incentive spirometry 5. Vascular: s/p right BKA -Follow-up appointment with Dr Stewart 07-20-19 8 am 6. 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 Endo: pmh DM, c/u metformin and ISS coverage 8. Skin: change dressing BID-patient learning to change his own acewrap 9. GI: optimize bowel care 10. : monitor PVRs 11. DVT ppx: on coumadin 12. Pain: c/u Tylenol prn and gabapentin 13. Dispo: 07-15-19 to home, progressing towards goals Allergies Coded Allergies: No Known Drug Allergies (Verified Allergy, Unknown, 07/04/19) Vital Signs Vital Signs Date Time Temp Pulse Resp B/P (MAP) Pulse Ox O2 Delivery O2 Flow Rate FiO2 07/13/19 09:25 72 133/61 07/13/19 06:00 97.0 18 95 Laboratory Data CBC/BMP Laboratory Tests 07/13/19 05:49 Calcium Level 8.7 L Labs 24H Laboratory Tests 2 07/12/19 17:15: Bedside Glucose (Misc Panel) 109 07/12/19 19:42: Bedside Glucose (Misc Panel) 154H 07/13/19 05:49: Prothrombin Time 30.5H, Prothromb Time International Ratio 2.93, Anion Gap 7L, Glomerular Filtration Rate > 60.0, Blood Urea Nitrogen 29H, Creatinine 1.19, Sodium Level 138, Potassium Level 4.1, Chloride Level 101, Carbon Dioxide Level 30, Calcium Level 8.7L 07/13/19 11:34: Bedside Glucose (Misc Panel) 103 Current Medications Current Medications Current Medications Medications (Trade) Dose Ordered Sig/Lico Route PRN Reason Start Time Stop Time Status Last Admin Dose Admin Acetaminophen (Tylenol Tab) 1,000 mg TID PO 07/04/19 16:00 07/06/19 11:30 DC 07/06/19 08:49 Acetaminophen (Tylenol Tab) 1,000 mg TID PRN PO fever/pain 07/06/19 11:30 07/12/19 21:14 Aspirin (Aspirin Chewable) 81 mg DAILY PEG 07/05/19 09:00 07/13/19 09:24 Atorvastatin Calcium (Lipitor) 20 mg QHS PO 07/04/19 21:00 07/12/19 21:11 Bisacodyl (Dulcolax Suppository) 10 mg DAILYPRN PRN [place] CONSTIPATION 07/04/19 15:00 Carvedilol (COReg) 6.25 mg BID PO 07/04/19 21:00 07/13/19 09:25 Dextrose (Dextrose 50%) 25 ml ASDIRECTED PRN IV SEE LABEL COMMENTS 07/04/19 15:00 Docusate Sodium (Colace) 100 mg BID PO 07/04/19 21:00 07/13/19 09:24 Enoxaparin Sodium (Lovenox) 90 mg Q12H SC 07/06/19 09:00 07/10/19 08:22 DC 07/09/19 20:35 Furosemide (Lasix) 80 mg DAILY PO 07/05/19 09:00 Future hold 07/13/19 12:05 Gabapentin (Neurontin) 100 mg BID PO 07/04/19 21:00 07/13/19 09:24 Glucagon (Glucagon) 1 mg ASDIRECTED PRN SC SEE LABEL COMMENTS 07/04/19 15:00 Glucose (Glucose) 16 GM ASDIRECTED PRN PO SEE LABEL COMMENTS 07/04/19 15:00 Home Med (Med Rec Complete!) ASDIRECTED XX 07/04/19 15:30 07/04/19 15:32 DC Insulin Human Lispro (HumaLOG INSULIN) SEE PROTOCOL TABLE AC SC 07/04/19 17:30 07/13/19 11:59 Insulin Human Lispro (HumaLOG INSULIN) SEE PROTOCOL TABLE QHS SC 07/04/19 21:00 Magnesium Hydroxide (Milk Of Magnesia) 30 ml DAILYPRN PRN PO CONSTIPATION 07/04/19 15:00 Metformin HCl (Glucophage) 500 mg BID@08,18 PO 07/10/19 18:00 07/13/19 09:24 Metformin HCl (Glucophage) 500 mg BID@08,18 PO 07/08/19 18:00 07/10/19 10:28 DC 07/10/19 09:17 Metformin HCl (Glucophage) 1,000 mg BID@08,18 PO 07/04/19 18:00 07/08/19 12:17 DC 07/08/19 09:11 Multivitamins (Theragram-M) 1 tab DAILY PO 07/05/19 09:00 07/13/19 09:24 Ondansetron HCl (Zofran Odt) 4 mg Q8HP PRN PO NAUSEA OR VOMITING 07/05/19 08:45 07/08/19 09:59 Oxycodone HCl (Roxicodone, Oxyir) 5 mg Q4HP PRN PO PAIN 07/04/19 15:00 07/10/19 20:14 Senna (Senokot) 1 tab QHS PO 07/04/19 21:00 07/12/19 21:12 Spironolactone (Aldactone) 25 mg QAM PO 07/05/19 09:00 07/13/19 09:24 Vitamin D (Vitamin D) 1,000 units DAILY PO 07/05/19 09:00 07/13/19 09:24 Warfarin Sodium (Coumadin) 2 mg DAILY@17 PO 07/06/19 17:00 07/07/19 09:46 DC 07/06/19 17:38 Warfarin Sodium (Coumadin) 3 mg DAILY@17 PO 07/13/19 17:00 Warfarin Sodium (Coumadin) 4 mg DAILY@17 PO 07/13/19 17:00 Warfarin Sodium (Coumadin) 5 mg DAILY@17 PO 07/06/19 17:00 07/07/19 09:46 DC 07/06/19 17:38 Warfarin Sodium (Coumadin) 7.5 mg DAILY@17 PO 07/12/19 17:00 07/13/19 10:07 DC 07/12/19 17:37 Warfarin Sodium (Coumadin) 8 mg DAILY@17 PO 07/07/19 17:00 07/12/19 09:49 DC 07/11/19 17:21 Zinc Oxide (Boudreauxs Butt Paste) sacrum BID TOP 07/04/19 21:00 07/13/19 09:26 SUJATA NERI MD Jul 13, 2019 12:52
[2019-07-13 14:00] VITALS: BP 118/52
[2019-07-13] MEDS: ACETAMINOPHEN 500 MG TAB PO PRN (15:39)
[2019-07-13] MEDS ORDERED: WARFARIN SOD 3 MG TAB PO SCH (17:00)
[2019-07-13] MEDS ORDERED: WARFARIN SOD 4 MG TAB PO SCH (17:00)
[2019-07-13 20:02] VITALS: BP 137/63
[2019-07-13] MEDS: SENNA 8.6 MG TAB (SENOKOT) PO SCH (20:25)
[2019-07-13] MEDS: ATORVASTATIN 20 MG TAB PO SCH (20:26)
[2019-07-14 05:59] VITALS: BP 143/77
[2019-07-14 06:52] LABS: INR 2.16; PROTHROMBIN TIME 30.7 SECONDS (11.8-14.0)
[2019-07-14] MEDS: BOUDREAUX'S BUTT PASTE TOP SCH ×2 (09:00→20:10)
[2019-07-14] MEDS: SPIRONOLACTONE 25 MG TAB PO SCH (09:29)
[2019-07-14] MEDS: DOCUSATE SODIUM 100 MG CAP PO SCH ×2 (09:29→20:09)
[2019-07-14] MEDS: metFORMIN (GLUCOPHAGE) 500 MG TAB PO SCH ×2 (09:29→18:26)
[2019-07-14] MEDS: ASPIRIN 81 MG CHEW TABLET PEG SCH (09:29)
[2019-07-14] MEDS: HumaLOG INSULIN (NovoLOG) PER UNIT SC SCH ×4 (09:29→20:10)
[2019-07-14] MEDS: GABAPENTIN 100 MG CAP PO SCH ×2 (09:29→20:09)
[2019-07-14] MEDS: VITAMIN D 1,000 INTERNATIONAL UNITS TABLET PO SCH (09:29)
[2019-07-14] MEDS: MULTIVITAMINS/MINERALS THERAP 1 TAB PO SCH (09:29)
[2019-07-14] MEDS: FUROSEMIDE 80 MG TAB PO SCH (09:29)
[2019-07-14] MEDS: CARVedilol 6.25 MG TAB PO SCH ×2 (09:30→20:09)
--- NOTE | 2019-07-14 11:56 | IPNPDOC ---
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 REVIEW OF SYSTEMS: The following is a completed review of systems and has been reviewed. Review of systems otherwise unremarkable. PAIN: Patient self reports no pain EYES: No recent vision changes EARS, NOSE, & THROAT: No throat pain, or dysphagia, or rhinorrhea CARDIOVASCULAR: Denies chest pain or palpitations PULMONARY: Denies shortness of breath GASTROINTESTINAL: Denies constipation/diarrhea GENITOURINARY: no dysuria MUSCULOSKELETAL: right bka NEUROLOGICAL: no vocal Tremor or seizure activity HEMATOLOGICAL: anemia SKIN: bka incision PSYCHIATRIC: Unremarkable All other review of systems found to be negative. PHYSICAL EXAMINATION: VITAL SIGNS: Please see below. GENERAL: Pleasant and cooperative. No acute distress. HEENT: PERRL. Extraocular movements intact. Clear conjunctiva CARDIOVASCULAR: Regular rate and rhythm. No murmurs, rubs, or gallops LUNGS: Clear to auscultation bilaterally. No wheezes. No rhonchi ABDOMEN: Soft, nontender, nondistended. Positive bowel sounds. Normal active bowel sounds NEUROLOGICAL: Alert and oriented times three. Cranial nerves II through XII grossly intact. Sensation grossly intact EXTREMITIES: 5/\5 strength bilateral upper extremities. 5\5 strength right hip flexion knee flexion knee extension. 5/5 strength in left lower extremity. (-) Neers and Rodriguez maneuver bilat SKIN: right BKLA incision c/d/i, No induration ASSESSMENT:69-year-old M with past medical history of CAD s/p CABG, CKD 3, DM2 who presents status post right BKA PLAN: 1. Rehab: PT- strengthen left LE, maintain ROM right LE, improve endurance for household ambulation, limb desensitization-Room privileges from wheelchair level OT- strengthen bilat UE and trunk, teach adaptive equipment use prn, maintain ROM of bilat UE and educate on shoulder stabilization exercises 2. Cardiac: pmh CAD sp CABG with PM/defibrillator, CHF- c/u lasix, aldactone, Co-reg, fluid restrict to 1800c- medicine consulted to assist in management -Afib- c/u coumadin goal 2-3,s/p Lovenox bridge- c/u Coumadin 3. neuro: pmh CVA with no obvious deficits, c/u statin therapy and ASA for secondary prevention 4. Resp: encourage incentive spirometry 5. Vascular: s/p right BKA -Follow-up appointment with Dr Stewart 07-20-19 8 am 6. 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 Endo: pmh DM, c/u metformin and ISS coverage 8. Skin: change dressing BID-patient learning to change his own acewrap 9. GI: optimize bowel care 10. : monitor PVRs 11. DVT ppx: on coumadin 12. Pain: c/u Tylenol prn and gabapentin 13. Dispo: 07-15-19 to home, progressing towards goals Allergies Coded Allergies: No Known Drug Allergies (Verified Allergy, Unknown, 07/04/19) Vital Signs Vital Signs Date Time Temp Pulse Resp B/P (MAP) Pulse Ox O2 Delivery O2 Flow Rate FiO2 07/14/19 09:30 74 143/77 07/14/19 05:59 97.4 18 96 Laboratory Data Labs 24H Laboratory Tests 2 07/13/19 17:00: Bedside Glucose (Misc Panel) 128H 07/13/19 19:50: Bedside Glucose (Misc Panel) 118H 07/14/19 05:41: Bedside Glucose (Misc Panel) 109 07/14/19 06:17: Prothrombin Time 30.7H, Prothromb Time International Ratio 2.16 07/14/19 11:40: Bedside Glucose (Misc Panel) 86 Current Medications Current Medications Current Medications Medications (Trade) Dose Ordered Sig/Lico Route PRN Reason Start Time Stop Time Status Last Admin Dose Admin Acetaminophen (Tylenol Tab) 1,000 mg TID PO 07/04/19 16:00 07/06/19 11:30 DC 07/06/19 08:49 Acetaminophen (Tylenol Tab) 1,000 mg TID PRN PO fever/pain 07/06/19 11:30 07/13/19 15:39 Aspirin (Aspirin Chewable) 81 mg DAILY PEG 07/05/19 09:00 07/14/19 09:29 Atorvastatin Calcium (Lipitor) 20 mg QHS PO 07/04/19 21:00 07/13/19 20:26 Bisacodyl (Dulcolax Suppository) 10 mg DAILYPRN PRN [place] CONSTIPATION 07/04/19 15:00 Carvedilol (COReg) 6.25 mg BID PO 07/04/19 21:00 07/14/19 09:30 Dextrose (Dextrose 50%) 25 ml ASDIRECTED PRN IV SEE LABEL COMMENTS 07/04/19 15:00 Docusate Sodium (Colace) 100 mg BID PO 07/04/19 21:00 07/14/19 09:29 Enoxaparin Sodium (Lovenox) 90 mg Q12H SC 07/06/19 09:00 07/10/19 08:22 DC 07/09/19 20:35 Furosemide (Lasix) 80 mg DAILY PO 07/05/19 09:00 Future hold 07/14/19 09:29 Gabapentin (Neurontin) 100 mg BID PO 07/04/19 21:00 07/14/19 09:29 Glucagon (Glucagon) 1 mg ASDIRECTED PRN SC SEE LABEL COMMENTS 07/04/19 15:00 Glucose (Glucose) 16 GM ASDIRECTED PRN PO SEE LABEL COMMENTS 07/04/19 15:00 Home Med (Med Rec Complete!) ASDIRECTED XX 07/04/19 15:30 07/04/19 15:32 DC Insulin Human Lispro (HumaLOG INSULIN) SEE PROTOCOL TABLE AC SC 07/04/19 17:30 07/14/19 09:29 Insulin Human Lispro (HumaLOG INSULIN) SEE PROTOCOL TABLE QHS ID 07/04/19 21:00 Magnesium Hydroxide (Milk Of Magnesia) 30 ml DAILYPRN PRN PO CONSTIPATION 07/04/19 15:00 Metformin HCl (Glucophage) 500 mg BID@,18 PO 07/10/19 18:00 07/14/19 09:29 Metformin HCl (Glucophage) 500 mg BID@, PO 07/08/19 18:00 07/10/19 10:28 DC 07/10/19 09:17 Metformin HCl (Glucophage) 1,000 mg BID@,18 PO 07/04/19 18:00 07/08/19 12:17 DC 07/08/19 09:11 Multivitamins (Theragram-M) 1 tab DAILY PO 07/05/19 09:00 07/14/19 09:29 Ondansetron HCl (Zofran Odt) 4 mg Q8HP PRN PO NAUSEA OR VOMITING 07/05/19 08:45 07/08/19 09:59 Oxycodone HCl (Roxicodone, Oxyir) 5 mg Q4HP PRN PO PAIN 07/04/19 15:00 07/10/19 20:14 Senna (Senokot) 1 tab QHS PO 07/04/19 21:00 07/13/19 20:25 Spironolactone (Aldactone) 25 mg QAM PO 07/05/19 09:00 07/14/19 09:29 Vitamin D (Vitamin D) 1,000 units DAILY PO 07/05/19 09:00 07/14/19 09:29 Warfarin Sodium (Coumadin) 2 mg DAILY@17 PO 07/06/19 17:00 07/07/19 09:46 DC 07/06/19 17:38 Warfarin Sodium (Coumadin) 3 mg DAILY@17 PO 07/13/19 17:00 07/14/19 10:24 DC 07/13/19 17:38 Warfarin Sodium (Coumadin) 4 mg DAILY@17 PO 07/13/19 17:00 07/14/19 10:24 DC 07/13/19 17:37 Warfarin Sodium (Coumadin) 5 mg DAILY@17 PO 07/06/19 17:00 07/07/19 09:46 DC 07/06/19 17:38 Warfarin Sodium (Coumadin) 7.5 mg DAILY@17 PO 07/12/19 17:00 07/13/19 10:07 DC 07/12/19 17:37 Warfarin Sodium (Coumadin) 7.5 mg DAILY@17 PO 07/14/19 17:00 Warfarin Sodium (Coumadin) 8 mg DAILY@17 PO 07/07/19 17:00 07/12/19 09:49 DC 07/11/19 17:21 Zinc Oxide (Boudreauxs Butt Paste) sacrum BID TOP 07/04/19 21:00 07/13/19 20:27 SUJATA NERI MD Jul 14, 2019 11:56
[2019-07-14 14:00] VITALS: BP 110/59
[2019-07-14] MEDS ORDERED: ATOR1TAB21 PO (16:46)
[2019-07-14] MEDS ORDERED: ASPI81CH8 PEG (16:46)
[2019-07-14] MEDS ORDERED: FURO80TA2 PO (16:46)
[2019-07-14] MEDS ORDERED: COUM7.5T PO (16:46)
[2019-07-14] MEDS ORDERED: ALDA25TA2 PO (16:46)
[2019-07-14] MEDS ORDERED: GABA-1171 PO (16:46)
[2019-07-14] MEDS ORDERED: GLUC500T PO (16:46)
[2019-07-14] MEDS ORDERED: CARV6.25 PO (16:46)
[2019-07-14] MEDS ORDERED: WARFARIN SOD 7.5 MG TAB PO SCH (17:00)
[2019-07-14 20:00] VITALS: BP 151/70
[2019-07-14] MEDS: ATORVASTATIN 20 MG TAB PO SCH (20:09)
[2019-07-14] MEDS: SENNA 8.6 MG TAB (SENOKOT) PO SCH (20:09)
[2019-07-15 05:53] VITALS: BP 136/65
[2019-07-15 06:52] LABS: HEMATOCRIT 32.1 % (42.0-52.0); HEMOGLOBIN 9.8 g/dl (13.5-17.5); MEAN CORPUSCULAR HEMOGLOBIN 27.2 pg (27.0-33.0); MEAN CORPUSCULAR HGB CONC 30.5 g/dl (32.0-36.5); MEAN CORPUSCULAR VOLUME 89.2 fl (80.0-96.0); PLATELET COUNT, AUTOMATED 261 10^3/uL (150-450); WHITE BLOOD COUNT 5.6 10^3/uL (4.0-10.0)
[2019-07-15 07:21] LABS: BLOOD UREA NITROGEN 33 MG/DL (7-18); CARBON DIOXIDE LEVEL 30 MEQ/L (21-32); CHLORIDE LEVEL 101 MEQ/L (98-107); CREATININE FOR GFR 1.16 MG/DL (0.70-1.30); GLOMERULAR FILTRATION RATE > 60.0 (>42); GLUCOSE, FASTING 126 MG/DL (70-100); POTASSIUM SERUM 4.4 MEQ/L (3.5-5.1); SODIUM LEVEL 136 MEQ/L (136-145)
[2019-07-15 07:35] LABS: INR 2.93; PROTHROMBIN TIME 30.5 SECONDS (11.8-14.0)
[2019-07-15] MEDS: VITAMIN D 1,000 INTERNATIONAL UNITS TABLET PO SCH (08:30)
[2019-07-15] MEDS: DOCUSATE SODIUM 100 MG CAP PO SCH (08:30)
[2019-07-15] MEDS: ASPIRIN 81 MG CHEW TABLET PEG SCH (08:30)
[2019-07-15] MEDS: HumaLOG INSULIN (NovoLOG) PER UNIT SC SCH ×2 (08:30→12:00)
[2019-07-15] MEDS: GABAPENTIN 100 MG CAP PO SCH (08:30)
[2019-07-15] MEDS: metFORMIN (GLUCOPHAGE) 500 MG TAB PO SCH (08:30)
[2019-07-15] MEDS: MULTIVITAMINS/MINERALS THERAP 1 TAB PO SCH (08:30)
[2019-07-15 08:32] VITALS: BP 120/55
[2019-07-15] MEDS: CARVedilol 6.25 MG TAB PO SCH (08:32)
[2019-07-15] MEDS: SPIRONOLACTONE 25 MG TAB PO SCH (08:32)
[2019-07-15] MEDS: BOUDREAUX'S BUTT PASTE TOP SCH (08:32)
[2019-07-15] MEDS: FUROSEMIDE 80 MG TAB PO SCH (09:00)
[2019-07-15] MEDS: ACETAMINOPHEN 500 MG TAB PO PRN (09:44)
[2019-07-15] MEDS ORDERED: COUM7.5T PO (10:52)
[2019-07-15] MEDS ORDERED: WARFARIN SOD 7.5 MG TAB PO SCH (17:00)
[2019-07-15] MEDS ORDERED: WARFARIN SOD 3 MG TAB PO SCH (17:00)
[2019-07-15] MEDS ORDERED: WARFARIN SOD 4 MG TAB PO SCH (17:00)
== END 2019-07-15 13:10 | disposition home health service (06) | DRG 560 ==
LOC: M PM&R 14:05
PROVIDERS: ADMIT Physical Medicine & Rehabilitation; ATTEND Physical Medicine & Rehabilitation
DX: Z47.81 Encounter for orthopedic aftercare following surgical amputation (principal); I13.0 Hypertensive heart and chronic kidney disease with heart failure and stage 1 through stage 4 chronic kidney disease, or unspecified chronic kidney disease; I50.42 Chronic combined systolic (congestive) and diastolic (congestive) heart failure; E11.51 Type 2 diabetes mellitus with diabetic peripheral angiopathy without gangrene; I25.10 Atherosclerotic heart disease of native coronary artery without angina pectoris; I48.2 Chronic atrial fibrillation; E78.5 Hyperlipidemia, unspecified; N18.3 Chronic kidney disease, stage 3 (moderate); E11.22 Type 2 diabetes mellitus with diabetic chronic kidney disease; Z89.511 Acquired absence of right leg below knee; Z79.82 Long term (current) use of aspirin; Z79.84 Long term (current) use of oral hypoglycemic drugs; Z79.899 Other long term (current) drug therapy; Z79.01 Long term (current) use of anticoagulants; Z86.73 Personal history of transient ischemic attack (TIA), and cerebral infarction without residual deficits; Z95.1 Presence of aortocoronary bypass graft